=== PATIENT | male | born 1945 | race Caucasian/White ===

== ENCOUNTER 2017-01-10 16:30 | Emergency (ER) | payer MEDICARE, OTHER ==
[~2017-01-10] VITALS: Ht 185.4 cm; Wt 77.1 kg
[2017-01-10 16:40] VITALS: BP 136/60
--- NOTE | 2017-01-10 17:14 | PHYS DOC ---
General Chief Complaint: WEAKNESS/GENERALIZED Stated Complaint: weakness Time Seen by MD: 17:13 Source: patient Exam Limitations: no limitations Problems: (VICKIE SAMUEL DO) Time Seen by MD: 18:31 Problems: (KIKO SURESH MD) History of Present Illness Initial Comments Patient is a 71-year-old male brought to the ED by a friend with multiple complaints. Patient states that his is very ill with late stage Alzheimer's dementia, he's been burning the candle at both ends trying to take care of her. He states that for the past 2 weeks his mood is been very decreased he's had very low energy he's been nauseous with very little appetite. He says that for the past 10 days he's had to force himself to eat when he was able to get anything in. He says he has had a couple slices of pears every few days. He was drinking water and Sprite however sprite was causing emesis so he is in drinking small sips of water as he's been able. He denies abdominal pain chest pain or difficulty breathing or dyspnea on exertion headache or focal weakness. He has history of detached retina and is legally blind in his left eye with last checked 20-40 vision. Last right visual acuity was 20/50, he says his vision has worsened past week he saw his primary care doctor and is scheduled with Dr. Martinez ophthalmology this next week. Patient's friend brought him to the hospital main building where the old emergency Department used to be. As they were walking in, the patient being legally blind accidentally tripped on a curb and fell forward catching himself with his hands and landing on his knees. He denies any injury from the fall and refuses any evaluation denying any complaints. Timing/Duration: getting worse, other Severity: moderate Modifying Factors: worse with eating, worse with movement, improves with rest Associated Symptoms: loss of appetite, malaise, nausea/vomiting, weakness, other (VICKIE SAMUEL DO) Allergies: Coded Allergies: ibuprofen (Verified Allergy, Intermediate, Hives, 01/10/17) Past Medical History Medical History: other (detached retina) Surgical History: noncontributory (VICKIE SAMUEL DO) Social History Smoker: non-smoker Alcohol: none Drugs: none (VICKIE SAMUEL DO) Review of Systems Constitutional: denies chills, denies diaphoresis, denies fever, malaise, weakness EENTM: see HPI Respiratory: denies cough, denies shortness of breath, denies wheezing Cardiovascular: denies chest pain, denies edema, denies palpitations, denies syncope Gastrointestinal: see HPI, denies abdominal pain Genitourinary: denies dysuria, denies frequency, denies hematuria Musculoskeletal: denies back pain, denies joint swelling, denies neck pain Skin: denies lesions, denies lumps, denies rash Psychiatric/Neurological: denies headache, denies numbness, denies paresthesia , denies weakness (VICKIE SAMUEL DO) Physical Exam General Appearance: WD/WN, no apparent distress Ear, Nose, Throat: hearing grossly normal, normal ENT inspection, normal pharynx (dry mucous membranes) Neck: non-tender, supple Respiratory: normal breath sounds, no respiratory distress Cardiovascular: normal peripheral pulses, bradycardia Gastrointestinal: normal bowel sounds, non tender, soft, no organomegaly Back: no CVA tenderness, no vertebral tenderness Extremities: non-tender, normal inspection 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 Interpreted by me. 1835: Patient signed out to Dr. Suresh at 1800 shift change with numerous studies pending. See his documentation for results and patient disposition. (VICKIE SAMUEL DO) Orders, Labs, Meds ER M.D. attending note Dr. Kiko Suresh Care assumed by me from Dr. Quiñonez at 1000. Patient with nausea and mild malaise for 2 weeks with decreased by mouth intake. He states he's been depressed but is not suicidal. Since seen initially by Dr. Quiñonez and full workup pending. Patient stable On M.D. exam patient is well-appearing with a nonfocal neurologic exam benign abdomen. He has a depressed mood and flat affect but denies significant depression and states he is functional at home. Workup is unremarkable except labs with mild hyponatremia sodium 127. Chest x- ray interpreted by me chronic changes no acute disease. EKG normal sinus rhythm at 62 with a left axis deviation and left anterior hemiblock. No further workup or treatment indicated. Patient is well appearing on reevaluation prior to discharge. He agrees with outpatient follow-up and strict return precautions given Diagnosis Hyponatremia Depression (KIKO SURESH MD) VICKIE SAMUEL DO Jan 10, 2017 17:14 KIKO SURESH MD Jan 11, 2017 02:51
[2017-01-10 18:10] LABS: BASO % 0 % (0-3); EOS # 0.1 x10^3/uL (0.0-0.7); EOS % 2 % (0-3); HEMATOCRIT 42.7 % (39.0-53.0); HEMOGLOBIN 15.1 g/dL (13.0-17.5); LYMPH # 1.3 x10^3/uL (1.0-4.8); LYMPH % 22 % (24-48); MEAN CORPUSCULAR HEMOGLOBIN 32 pg (25-35); MEAN CORPUSCULAR HGB CONC 35 g/dL (31-37); MEAN CORPUSCULAR VOLUME 92 fL (79-100); MONO # 0.9 x10^3/uL (0.0-1.1); MONO % 16 % (0-9); NEUT # 3.5 x10^3uL (1.8-7.7); NEUT % 60 % (31-73); PLATELET COUNT 219 x10^3/uL (140-400); RED BLOOD COUNT 4.66 x10^6/uL (4.30-5.70); WHITE BLOOD COUNT 5.8 x10^3/uL (4.0-11.0)
[2017-01-10] MEDS ORDERED: IV NORMAL SALINE 1,000ML 1,000 ML IV SCH (18:10)
[2017-01-10 18:27] LABS: ALBUMIN 3.4 g/dL (3.4-5.0); ALBUMIN/GLOBULIN RATIO 0.9 (1.0-1.7); CALCIUM 8.5 mg/dL (8.5-10.1); GFR 73.5; POTASSIUM 3.6 mmol/L (3.5-5.1); TOTAL BILIRUBIN 0.7 mg/dL (0.2-1.0); TOTAL PROTEIN 7.2 g/dL (6.4-8.2)
--- NOTE | 2017-01-10 18:28 | EKG ---
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
[2017-01-10] MEDS ORDERED: ONDANSETRON PF 4 MG/2 ML VIAL. IV ONE (18:35)
[2017-01-10 20:27] LABS: BACTERIA,URINE 0 /HPF (0-FEW); BILIRUBIN,URINE NEG (NEG); CLARITY,URINE CLEAR; COLOR,URINE YELLOW; GLUCOSE,URINE NEG (NEG); NITRITE,URINE NEG (NEG); SQUAMOUS EPITHELIAL CELL,UR OCC /LPF; UROBILINOGEN,URINE 4 mg/dL (0.2 mg/dL); WBC,URINE OCC /HPF (0-4)
--- NOTE | 2017-01-11 08:47 | RAD ---
AP chest, 01/10/2017: History: Weakness, nausea The heart size and pulmonary vascularity are normal. No pulmonary infiltrates are seen. There is no evidence of pleural fluid. There are mild scattered spurs in the spine. IMPRESSION: No acute cardiopulmonary abnormality is detected.
== END 2017-01-10 20:20 | disposition home or self-care (01) ==
LOC: ER 16:30
DX: E87.1 Hypo-osmolality and hyponatremia (principal); F32.9 Major depressive disorder, single episode, unspecified; Z88.6 Allergy status to analgesic agent
CPT/HCPCS: 36415; 71010; 80053; 81001; 84484; 85027; 93005; 96361; 96374; 99285; J2405; J7030

== ENCOUNTER → 2017-01-16 | Outpatient (CLI) | payer MEDICARE, OTHER ==
[2017-01-10 16:40] VITALS: BP 136/60
[~2017-01-16] MED LIST: IOHEXOL 240 MG/ML 50ML VIAL. ONE; IOHEXOL 300 MG/ML 75 ML VIAL. IV ONE
--- NOTE | 2017-01-16 10:05 | RAD ---
Indication loss of appetite for 2 weeks. Vomiting. Stomach pain. Axial images of the abdomen and pelvis were obtained. Both oral and IV contrast were administered. Approximately 75 cc of Omnipaque 300 was administered intravenously. No prior CT imaging of the abdomen or pelvis is available. The lung bases are clear. The liver and spleen appear unremarkable and the gallbladder appears grossly normal. No pancreatic adrenal or renal anomalies are seen. There is no significant central or retroperitoneal adenopathy. In the pelvis no acute finding is seen. The prostate is moderately enlarged. The urinary bladder is distended. There are some degenerative changes in the lumbar spine predominantly centered at L5-S1 IMPRESSION: No acute finding seen in the abdomen or pelvis. Enlarged prostate. Distended urinary bladder PQRS Compliance Statement: One or more of the following individualized dose reduction techniques were utilized for this examination: 1. Automated exposure control 2. Adjustment of the mA and/or kV according to patient size 3. Use of iterative reconstruction technique
--- NOTE | 2017-01-16 11:55 | RAD ---
Carotid ultrasound, 01/16/2017: History: Right eye visual loss Duplex evaluation of the carotid arteries in neck was performed including grayscale, color-flow and spectral Doppler analysis. There is mild intimal thickening in the common carotid arteries with mild smooth plaquing at the carotid bifurcations. The plaques are partially calcified. The peak systolic velocity in the right internal carotid artery is 60 cm/s with an end-diastolic velocity of 22 cm/s. The peak systolic velocity in the left internal carotid artery is 59 cm/s with an end-diastolic velocity of 19 cm/s. No significant velocity acceleration is seen on either side to suggest high-grade stenosis. Antegrade flow is present in both vertebral arteries in the neck. IMPRESSION: Mild atherosclerotic plaquing at both carotid bifurcations with underlying luminal narrowing in the 0-50% diameter range bilaterally. Note: Stenosis calculations for CT, MRA and conventional angiography are based upon determination of the distal ICA diameter in accordance with the NASCET methodology. Stenosis calculations for Doppler studies are derived from validated velocity criteria which are known to correlate with NASCET methodology of determining stenosis.
== END | disposition home or self-care (01) ==
LOC: CT 08:02
PROVIDERS: ATTEND Physician Assistant Medical
DX: N40.0 Benign prostatic hyperplasia without lower urinary tract symptoms (principal); H54.61 Unqualified visual loss, right eye, normal vision left eye; I65.23 Occlusion and stenosis of bilateral carotid arteries; R11.10 Vomiting, unspecified
CPT/HCPCS: 74177; 93880; Q9966; Q9967

== ENCOUNTER → 2018-11-20 | Outpatient (CLI) | payer MEDICARE, OTHER ==
--- NOTE | 2018-11-20 16:46 | RAD ---
PA and lateral chest. HISTORY: Hypertension PA and lateral views were taken of the chest. Comparison is made with a study of January 2012. There is mild apical scarring. Lungs are clear. Heart is normal in size. There is no pleural effusion. IMPRESSION: 1. No acute chest disease. Electronically signed by: Bienvenido Hummel MD (11/20/2018 4:43 PM) [facility]
--- NOTE | 2018-11-20 16:54 | RAD ---
Lumbar spine 5 views. HISTORY: Low back pain AP, lateral, coned-down lateral and both oblique views were taken of the lumbar spine. Spine is in normal alignment. There is disc space narrowing at L5-S1. There is a mild compression fracture of T12 which is new compared to January 2017 but exact age is indeterminate. Oblique view show no spondylolysis. IMPRESSION: 1. Degenerative disc disease L5-S1. 2. Mild compression fracture T12. Electronically signed by: Bienvenido Hummel MD (11/20/2018 4:51 PM) [facility]
== END | disposition home or self-care (01) ==
LOC: PMG 15:54
PROVIDERS: ATTEND Physician Assistant Medical
DX: M48.54XA Collapsed vertebra, not elsewhere classified, thoracic region, initial encounter for fracture (principal); M51.37 Other intervertebral disc degeneration, lumbosacral region; M48.07 Spinal stenosis, lumbosacral region; J98.4 Other disorders of lung; I10 Essential (primary) hypertension
CPT/HCPCS: 71046; 72110

== ENCOUNTER → 2019-09-21 | Outpatient (CLI) | payer MEDICARE, OTHER ==
--- NOTE | 2019-09-21 15:19 | RAD ---
NECK SOFT TISSUE History: Left neck swelling Comparison: None. Findings: Multiple sonographic images directed toward the left neck are submitted. At the area of concern, there is an ovoid hypoechoic mass about 1.9 x 1.5 x 1.3 cm, another adjacent mass about 1.5 x 1.2 x 1 cm. If these are lymph nodes, there is loss of definition of the central fatty delicia. In the left neck labeled as below the jaw line, there is a 0.5 x 0.5 x 0.4 cm likely node with central fatty hilum. There are also several other smaller nodes of the left neck There are also some small lymph nodes of the visualized right neck. Impression: 1. At site of concern of left neck, there are 2 hypoechoic masses or abnormal lymph nodes. Short-term clinical follow-up after treatment to assess for improvement or further imaging such as with neck CT is recommended. Electronically signed by: Ti Spear MD (09/21/2019 3:16 PM) [id number]
--- NOTE | 2019-09-21 16:38 | RAD ---
EXAM: Abdomen sonogram. HISTORY: Elevated liver enzyme laboratory values. TECHNIQUE: Sonographic imaging of the abdomen was performed. COMPARISON: None. FINDINGS: The liver is normal in size. No focal hepatic lesion is seen. The gallbladder contains multiple nonmobile echogenic lesions along the gallbladder wall, the appearance of which favors tiny polyps or cholesterolosis. The largest of these measure 2 to 3 mm. The right kidney, pancreas and inferior vena cava are unremarkable. The common bile duct is normal in caliber. IMPRESSION: 1. Tiny nonmobile echogenic foci along the collar wall due to tiny polyps or cholesterolosis. 2. Otherwise, unremarkable abdomen sonogram. Electronically signed by: Rebekah Angulo MD (09/21/2019 4:35 PM) [id number]
== END | disposition home or self-care (01) ==
LOC: US 12:36
PROVIDERS: ATTEND Physician Assistant Medical
DX: R22.1 Localized swelling, mass and lump, neck (principal); R74.0 Nonspecific elevation of levels of transaminase and lactic acid dehydrogenase [LDH]
CPT/HCPCS: 76536; 76705

== ENCOUNTER 2020-12-16 07:01 | Emergency (ER) | payer MEDICARE, OTHER ==
[~2020-12-16] VITALS: Ht 188 cm; Wt 93.7 kg
--- NOTE | 2020-12-16 07:38 | PHYS DOC ---
Past History Past Medical History: Other Additional Past Medical Histor: HAY FEVER Past Surgical History: No Surgical History Additional Smoking Information: PT STATES HE SMOKES A PIPE Alcohol Use: None Additional Alcohol Information: 5 BEERS DAILY Drug Use: None General Adult EDM: Chief Complaint: LOWER EXTREMITY SWELLING HPI: HPI: 75-year-old male presents with right lower leg swelling. He has intermittent swelling of his lower legs bilaterally at baseline. It comes and goes and is typically mild. He has pitting edema and erythema of the right lower leg for the last couple of days and he decided he should get that evaluated. The patien t also has a rash on his left forearm its been there for months. He also has a prominent mass in the left side of his neck that he was supposed to get a biopsy of a year ago. He has not had that test yet. Review of Systems: Review of Systems: Constitutional: Denies fever or chills Eyes: Denies change in visual acuity HENT: Neck mass Respiratory: Denies cough or shortness of breath Cardiovascular: Denies chest pain or edema GI: Denies abdominal pain, nausea, vomiting, bloody stools or diarrhea : Denies dysuria Musculoskeletal: Denies back pain or joint pain Integument: Rash of the left forearm and right lower leg Neurologic: Denies headache, focal weakness or sensory changes Endocrine: Denies polyuria or polydipsia Lymphatic: Denies swollen glands Psychiatric: Denies depression or anxiety Allergies: Allergies: Allergies Coded Allergies Type Severity Reaction Last Updated Verified ibuprofen Allergy Intermediate Hives 01/10/17 Yes Physical Exam: PE: Constitutional: Well developed, well nourished, no acute distress, non-toxic appearance. [] HENT: Normocephalic, atraumatic, bilateral external ears normal, oropharynx moist, no oral exudates, nose normal. [] Eyes: PERRLA, EOMI, conjunctiva normal, no discharge. [] Neck: Normal range of motion, firm palpable 1.5 cm x 3 cm mass in the left anterior neck. [] Cardiovascular: Heart rate regular rhythm, no murmur [] Lungs & Thorax: Bilateral breath sounds clear to auscultation [] Abdomen: Bowel sounds normal, soft, no tenderness, no masses, no pulsatile masses. [] Skin: Warm erythematous rash of the right lower leg with 3+ pitting edema. Erythematous, nodular rash of the left forearm. [] Back: No tenderness, no CVA tenderness. [] Extremities: No tenderness, no cyanosis, no clubbing, ROM intact, no edema. [] Neurologic: Alert and oriented X 3, normal motor function, normal sensory function, no focal deficits noted. [] Psychologic: Affect normal, judgement normal, mood normal. [] Current Patient Data: Vital Signs: Vital Signs Date Time Temp Pulse Resp B/P (MAP) Pulse Ox O2 Delivery O2 Flow Rate FiO2 12/16/20 07:20 98.1 96 20 136/112 (120) 99 Room Air EKG: EKG: [] Radiology/Procedures: Radiology/Procedures: [] Heart Score: C/O Chest Pain: N/A Risk Factors: Risk Factors: DM, Current or recent (<one month) smoker, HTN, HLP, family history of CAD, obesity. Risk Scores: Score 0 - 3: 2.5% MACE over next 6 weeks - Discharge Home Score 4 - 6: 20.3% MACE over next 6 weeks - Admit for Clinical Observation Score 7 - 10: 72.7% MACE over next 6 weeks - Early Invasive Strategies Course & Med Decision Making: Course & Med Decision Making Pertinent Labs and Imaging studies reviewed. (See chart for details) The patient's labs are unremarkable. Patient appears to have cellulitis of the right lower leg. I will treat him with Keflex for 7 days. I am unsure what is going on with chronic rash in his left arm. I stressed to the patient that he needed to get the biopsy of his neck done as soon as possible. He will follow- up with his primary care physician. He is stable for discharge at this time. [] Dragon Disclaimer: Dragon Disclaimer: This electronic medical record was generated, in whole or in part, using a voice recognition dictation system. Departure Departure: Impression: Primary Impression: Cellulitis of right lower extremity Additional Impressions: Neck mass Rash Disposition: HOME / SELF CARE / HOMELESS Condition: STABLE Referrals: DINA LANGE (PCP) Patient Instructions: Cellulitis, [id number] Scripts Cephalexin (CEPHALEXIN) 500 Mg Tablet 1 TAB PO TID for cellulitis for 7 Days, #21 TAB Prov: IRMA QUINTANA DO 12/16/20 IRMA QUINTANA DO Dec 16, 2020 07:38
[2020-12-16 07:55] LABS: BASO # 0.1 x10^3/uL (0.0-0.2); BASO % 1 % (0-3); EOS # 0.9 x10^3/uL (0.0-0.7); EOS % 10 % (0-3); HEMATOCRIT 37.5 % (39.0-53.0); HEMOGLOBIN 12.5 g/dL (13.0-17.5); LYMPH # 2.4 x10^3/uL (1.0-4.8); LYMPH % 27 % (24-48); MEAN CORPUSCULAR HEMOGLOBIN 27 pg (25-35); MEAN CORPUSCULAR HGB CONC 33 g/dL (31-37); MEAN CORPUSCULAR VOLUME 80 fL (79-100); MONO # 1.2 x10^3/uL (0.0-1.1); MONO % 13 % (0-9); NEUT # 4.5 x10^3uL (1.8-7.7); NEUT % 50 % (31-73); PLATELET COUNT 270 x10^3/uL (140-400); RED BLOOD COUNT 4.69 x10^6/uL (4.30-5.70); RED CELL DISTRIBUTION WIDTH 16.4 % (11.5-14.5); WHITE BLOOD COUNT 9.1 x10^3/uL (4.0-11.0)
[2020-12-16 08:32] LABS: ALBUMIN 3.5 g/dL (3.4-5.0); ALBUMIN/GLOBULIN RATIO 0.9 (1.0-1.7); CALCIUM 8.5 mg/dL (8.5-10.1); GFR 72.6; TOTAL BILIRUBIN 0.5 mg/dL (0.2-1.0); TOTAL PROTEIN 7.3 g/dL (6.4-8.2)
[2020-12-16] MEDS ORDERED: CEPH500T PO (09:01)
== END 2020-12-16 09:12 | disposition home or self-care (01) ==
LOC: ER 07:01
DX: L03.115 Cellulitis of right lower limb (principal); R22.1 Localized swelling, mass and lump, neck; Z88.6 Allergy status to analgesic agent
CPT/HCPCS: 36415; 80053; 83880; 85025; 99283-25

== ENCOUNTER → 2021-01-04 | Outpatient (CLI) | payer MEDICARE, OTHER ==
[2020-12-16 07:20] VITALS: BP 136/112
[~2021-01-04] MED LIST changes: +CEPH500T PO; -IOHEXOL 240 MG/ML 50ML VIAL. ONE
--- NOTE | 2021-01-04 11:54 | RAD ---
PQRS Compliance Statement: One or more of the following individualized dose reduction techniques were utilized for this examinat ion: 1. Automated exposure control 2. Adjustment of the mA and/or kV according to patient size 3. Use of iterative reconstruction technique CT NECK SOFT TISSUE WITH IV CONTRAST 01/04/2021 10:17 AM Indication: Left-sided neck mass COMPARISON: Ultrasound neck 09/21/2019 TECHNIQUE: Multiple axial CT images of the neck were obtained after the intravenous administration of nonionic contrast. Coronal and sagittal reformats are provided. FINDINGS: Lung bases are clear. Heart size within normal limits. Visualized orbits are normal. Paranasal sinuse s are well aerated. Education Analyst spaces normal. Submandibular glands are normal. No significant abnorma lity involving the oral cavity, floor of mouth and sublingual space. Parapharyngeal fat is preserved. Along the superficial lobe of the left parotid gland inferiorly there is a hypoattenuating lesion me asuring 2.4 x 2.1 cm. Immediately inferior and partially contiguous with this area is a rounded nodul ar soft tissue mass measuring 2.3 x 2.2 cm. Left submandibular lymph node measures 8.5 mm. Vascular s paces are intact with exception of mild calcified plaque at the carotid bifurcations. There is no retropharyngeal lymphadenopathy. Nasopharynx is normal in appearance. Tonsilloliths are i dentified in the right. Oropharynx is otherwise normal. Epiglottis and aryepiglottic folds are intact . The vallecula and piriform spaces are normal. No laryngeal or tracheal mass. Laryngeal cartilage is intact. Lungs are clear. No suspicious osseous normality. Mild cervical spondylosis. Thyroid is norm al. IMPRESSION: 1. There is a mass involving the inferior superficial left parotid gland which may represent an intra parotid lymph node as may be seen with lymphoma versus benign or malignant parotid neoplasm. There is an adjacent either contiguous or separate soft tissue mass which could represent an enlarged lymph n ode immediately inferior to the left parotid gland. Tissue sampling is recommended for further evalua tion. 2. This finding appears similar when dating back to 09/21/2019, although difficult to compare given di fferences in modality. Given persistence, reactive lymphadenopathy is unlikely. Electronically signed by: Janny Jean MD (01/04/2021 11:52 AM) [id number]
== END ==
LOC: CT 09:40
PROVIDERS: ATTEND Surgery
DX: M47.812 Spondylosis without myelopathy or radiculopathy, cervical region (principal); I65.23 Occlusion and stenosis of bilateral carotid arteries; R22.1 Localized swelling, mass and lump, neck
CPT/HCPCS: 70491; Q9967

== ENCOUNTER 2021-02-19 03:27 | Emergency (ER) | payer MEDICARE, OTHER ==
[~2021-02-19] VITALS: Ht 188 cm; Wt 94.0 kg
[~2021-02-19 03:27] MED LIST changes: -IOHEXOL 300 MG/ML 75 ML VIAL. IV ONE
[2021-02-19] MEDS ORDERED: ASPIRIN CHEWABLE 81 MG TABLET. PO ONE (03:45)
[2021-02-19 04:27] LABS: BASO # 0.1 x10^3/uL (0.0-0.2); BASO % 1 % (0-3); EOS # 0.9 x10^3/uL (0.0-0.7); EOS % 12 % (0-3); HEMATOCRIT 22.6 % (39.0-53.0); HEMOGLOBIN 7.1 g/dL (13.0-17.5); LYMPH % 27 % (24-48); MEAN CORPUSCULAR HEMOGLOBIN 22 pg (25-35); MEAN CORPUSCULAR HGB CONC 31 g/dL (31-37); MEAN CORPUSCULAR VOLUME 69 fL (79-100); MONO # 0.9 x10^3/uL (0.0-1.1); MONO % 13 % (0-9); NEUT # 3.4 x10^3uL (1.8-7.7); NEUT % 47 % (31-73); PLATELET COUNT 332 x10^3/uL (140-400); RED BLOOD COUNT 3.26 x10^6/uL (4.30-5.70); RED CELL DISTRIBUTION WIDTH 21.3 % (11.5-14.5); WHITE BLOOD COUNT 7.2 x10^3/uL (4.0-11.0)
[2021-02-19 04:41] LABS: CALCIUM 7.7 mg/dL (8.5-10.1); CREATININE 0.9 mg/dL (0.7-1.3); POTASSIUM 3.8 mmol/L (3.5-5.1)
[2021-02-19 04:51] LABS: HYPOCHROMIA MOD; PLT ESTIMATE ADEQUATE (ADEQUATE)
[2021-02-19 04:52] LABS: ANISOCYTOSIS MOD; MICROCYTOSIS MOD
[2021-02-19 04:53] LABS: ALBUMIN 3.2 g/dL (3.4-5.0); DIRECT BILIRUBIN 0.1 mg/dL (0.0-0.2); TOTAL BILIRUBIN 0.3 mg/dL (0.2-1.0); TOTAL PROTEIN 6.2 g/dL (6.4-8.2)
--- NOTE | 2021-02-19 05:02 | EKG ---
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
[2021-02-19] MEDS ORDERED: IOHEXOL 350 MG/ML 100 ML VIAL. IV ONE (05:30)
[2021-02-19] MEDS ORDERED: CONTRAST GIVEN. MC PRN (05:30)
[2021-02-19] MEDS ORDERED: APIXABAN 5 MG TABLET. PO ONE (05:30)
--- NOTE | 2021-02-19 06:02 | RAD ---
Study: XR CHEST 1V Indication: Chest pain. Comparison: 11/20/2018 Findings: The cardiomediastinal silhouette and delicia are within normal limits. Flattened diaphragm. No confluent airspace infiltrate, pleural effusion or pneumothorax. Impression: No acute radiographic abnormality of the chest. Possible underlying emphysema. Correlate for a smokin g history. Electronically signed by: ANA LUISA ARENAS MD (02/19/2021 5:59 AM) [facility]
[2021-02-19] MEDS: IV RINGERS SOLUTION,LACTATED 1,000 ML IV SCH ×2 (06:04→06:11)
--- NOTE | 2021-02-19 06:14 | EKG ---
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
[2021-02-19] MEDS ORDERED: PANTOPRAZOLE IV 40 MG VIAL. IVP ONE (06:15)
--- NOTE | 2021-02-19 06:22 | RAD ---
Study: CT CHEST WITH CONTRAST - PULMONARY ANGIOGRAM History: Pleuritic chest pain. Comparison: None. Technique: Helical CT of the chest performed after the administration of 100 cc Omnipaque 350 intrav enous contrast and timed for angiographic evaluation of the pulmonary arteries per PE protocol. Coron al and sagittal 3D MIP reformations were obtained. One or more of the following individualized dose reduction techniques were utilized for this examinat ion: 1. Automated exposure control 2. Adjustment of the mA and/or kV according to patient size 3. Use of iterative reconstruction technique. Findings: Pulmonary Arteries: No main, lobar or segmental pulmonary embolism. Normal main pulmonary artery santiago nazanin. Heart/Systemic Vasculature: No aortic aneurysm or dissection. Multifocal calcific atherosclerosis wit h extensive coronary artery involvement. Mediastinum: No pathologically enlarged lymph nodes, pericardial effusion or hiatal hernia. Lungs: Tiny subpleural nodule at the left upper lobe on image 41 series 4. Tiny fissural nodule at th e anterior left lower lobe on image 85 series 4. No localized airspace infiltrate. Mild emphysema, bi apical scarring and basilar volume loss. Mild bronchial wall thickening best seen within the right lo wer lobe. No pleural effusion. Neck/Axilla/Body Wall: Unremarkable thyroid and axilla. Minimal gynecomastia. Upper Abdomen: Several mildly prominent upper abdominal lymph nodes have not significant changed in s ize from a CT abdomen/pelvis performed in 2017. There appears to be a small gallstone or small adjace nt stones approaching the gallbladder neck on image [address] evidence for acute cholecysti tis. Calcification within the pancreas uncinate process. Bones: T12 superior endplate height loss is chronic. T2, T7 and T9 body hemangiomas vertebral body he mangiomas. Also chronic is mild superior endplate height loss at T4. Miscellaneous: None. IMPRESSION: 1. No main, lobar or segmental pulmonary embolism. 2. Mild emphysema. If the patient meets screening guidelines annual low dose CT of the chest is andrew mmended. 3. No localized airspace infiltrate to suggest pneumonia. 4. Additional chronic observations described in the body of the report to include extensive calcific coronary artery disease. Electronically signed by: ANA LUISA ARENAS MD (02/19/2021 6:20 AM) [facility]
[2021-02-19] MEDS ORDERED: diphenhydrAMINE 50 MG/ML VIAL IVP ONE (06:30)
--- NOTE | 2021-02-19 06:45 | PHYS DOC ---
Past History Past Medical History: Anemia, Arthritis, Asthma Additional Past Medical Histor: HAY FEVER (RAFAEL HERNANDEZ MD) Past Surgical History: No Surgical History (RAFAEL HERNANDEZ MD) Alcohol Use: Heavy Drug Use: None (RAFAEL HERNANDEZ MD) General Adult EDM: Chief Complaint: CHEST PAIN HPI: HPI: ".. I got chest pain.. and some shortness of breath.. this has been going on for awhile... maybe two weeks now.. It get tired easy.." " ".. About the same time..I got my COVID shot..and .. I got this mass here on side of my jaw....its been there a year or so. .".. ".. I ve been seeing Dr. Payne.. for it.. " I see Nava for everything else.. Patient is a 75 year old male who presents with above complaints central chest pain, fatigue and shortness of breath. Patient states these symptoms have been present for the past couple weeks.. Patient denies any recent travel. No specific ill contacts. No change in change in meds. Patient does have past history of asthma, arthritis, left mandible mass which he sees Dr. Payne. Aruna ent does smoke a pipe. Patient also has a history of chronic lower leg edema and a history of cellulitis in the lower legs. Seen in the ER on 12/16/2020 for cellulitis. Patient, states chest pain tonight seemed to be more persistent. Patient states last 2 weeks overall fatigue has increased. Patient recently completed Covid vaccination with Moderna last week. (RAFAEL HERNANDEZ MD) Review of Systems: Review of Systems: Constitutional: Denies fever or chills Eyes: Denies change in visual acuity HENT: Denies nasal congestion or sore throat Respiratory: Denies cough or shortness of breath Cardiovascular: Complains of of central chest pain. Does have history of lower leg edema GI: Denies abdominal pain, nausea, vomiting, bloody stools or diarrhea : Denies dysuria Musculoskeletal: Complains of generalized weakness Integument: Denies rash Neurologic: Denies headache, focal weakness or sensory changes Endocrine: Denies polyuria or polydipsia Lymphatic: Denies swollen glands Psychiatric: Denies depression or anxiety (RAFAEL HERNANDEZ MD) Family History: Family History: Noncontributory to presentation (RAFAEL HERNANDEZ MD) Current Medications: Current Meds: Current Medications Medications (Trade) Dose Ordered Sig/Soledad Start Time Stop Time Status Last Admin Dose Admin Apixaban (Eliquis) 10 mg 1X ONCE 02/19/21 05:30 02/19/21 06:27 DC Aspirin (Aspirin Chewable) 324 mg 1X ONCE 02/19/21 03:45 02/19/21 06:27 DC Diphenhydramine HCl (Benadryl) 25 mg 1X ONCE 02/19/21 06:30 02/19/21 06:31 DC 02/19/21 06:36 25 MG Info (Do NOT chart on this entry -- for MONITORING) 1 each PRN DAILY PRN 02/19/21 05:30 02/21/21 05:29 Iohexol (Omnipaque 350 Mg/ml) 100 ml 1X ONCE 02/19/21 05:30 02/19/21 05:31 DC 02/19/21 05:40 100 ML Lactated Ringer's 1,000 ml @ 100 mls/hr Q10H 02/19/21 03:45 02/19/21 13:44 02/19/21 06:11 100 MLS/HR Pantoprazole Sodium (Protonix Vial) 80 mg 1X ONCE 02/19/21 06:15 02/19/21 06:18 DC 02/19/21 06:36 80 MG (RAFAEL HERNANDEZ MD) Allergies: Allergies: Allergies Coded Allergies Type Severity Reaction Last Updated Verified ibuprofen Allergy Intermediate Hives 01/10/17 Yes (RAFAEL HERNANDEZ MD) Physical Exam: PE: Constitutional: Moderate acute distress, non-toxic appearance. [] HENT: Normocephalic, atraumatic, bilateral external ears normal, oropharynx moist, no oral exudates, nose normal. Left mandibular and neck mass. Eyes: PERRLA, EOMI, conjunctiva pale, no discharge. [] Neck: Normal range of motion, no tenderness, supple, no stridor. [] Cardiovascular:Heart rate regular rhythm, no murmur, PMI to the left Lungs & Thorax: Bilateral breath sounds equal apex with scattered wheezes on auscultation [] Abdomen: Bowel sounds normal, soft, no tenderness, no masses, no pulsatile masses. [] Skin: Warm, dry, no erythema, no rash. Pale Back: No tenderness, no CVA tenderness. [] Extremities: No tenderness, no cyanosis, no clubbing, ROM intact, lower leg edema. More erythema/venous stasis on right Neurologic: Alert and oriented X 3, moves all extremities on request, does have distal sensory,, no focal deficits noted. [] Psychologic: Affect anxious, judgement normal, mood normal. [] (RAFAEL HERNANDEZ MD) PE: Constitutional: Well developed, well nourished, no acute distress, non-toxic appearance HENT: Normocephalic, atraumatic Eyes: Conjunctiva normal, no discharge Neck: Normal range of motion, supple Lungs & Thorax: No respiratory distress, equal chest rise and fall Abdomen: Soft, no tenderness, no guarding/rebound tenderness/distention Skin: Warm, dry, no erythema, no rash Extremities: No tenderness, ROM intact, 2-3+ BLE (R>L) edema Neurologic: Alert and oriented X 3, no focal deficits noted Psychologic: Affect normal, judgment normal (KIKO HENDRICKSON DO) Current Patient Data: Labs: Laboratory Tests Test 02/19/21 04:05 White Blood Count 7.2 x10^3/uL (4.0-11.0) Red Blood Count 3.26 x10^6/uL (4.30-5.70) L Hemoglobin 7.1 g/dL (13.0-17.5) L Hematocrit 22.6 % (39.0-53.0) L Mean Corpuscular Volume 69 fL (79-100) L Mean Corpuscular Hemoglobin 22 pg (25-35) L Mean Corpuscular Hemoglobin Concent 31 g/dL (31-37) Red Cell Distribution Width 21.3 % (11.5-14.5) H Platelet Count 332 x10^3/uL (140-400) Neutrophils (%) (Auto) 47 % (31-73) Lymphocytes (%) (Auto) 27 % (24-48) Monocytes (%) (Auto) 13 % (0-9) H Eosinophils (%) (Auto) 12 % (0-3) H Basophils (%) (Auto) 1 % (0-3) Neutrophils # (Auto) 3.4 x10^3uL (1.8-7.7) Lymphocytes # (Auto) 2.0 x10^3/uL (1.0-4.8) Monocytes # (Auto) 0.9 x10^3/uL (0.0-1.1) Eosinophils # (Auto) 0.9 x10^3/uL (0.0-0.7) H Basophils # (Auto) 0.1 x10^3/uL (0.0-0.2) Platelet Estimate Adequate (ADEQUATE) Hypochromasia Mod Anisocytosis Mod Microcytosis Mod Prothrombin Time 9.9 SEC (9.4-11.4) Prothrombin Time INR 1.0 (0.9-1.1) Activated Partial Thromboplast Time 23 SEC (23-33) D-Dimer (Kandi) 1.36 mg/L (0.00-0.50) H Sodium Level 138 mmol/L (136-145) Potassium Level 3.8 mmol/L (3.5-5.1) Chloride Level 104 mmol/L (98-107) Carbon Dioxide Level 24 mmol/L (21-32) Anion Gap 10 (6-14) Blood Urea Nitrogen 8 mg/dL (8-26) Creatinine 0.9 mg/dL (0.7-1.3) Estimated GFR (Cockcroft-Gault) 82.0 Glucose Level 103 mg/dL (70-99) H Calcium Level 7.7 mg/dL (8.5-10.1) L Magnesium Level 2.0 mg/dL (1.8-2.4) Total Bilirubin 0.3 mg/dL (0.2-1.0) Direct Bilirubin 0.1 mg/dL (0.0-0.2) Aspartate Amino Transferase (AST) 37 U/L (15-37) Alanine Aminotransferase (ALT) 22 U/L (16-63) Alkaline Phosphatase 79 U/L (46-116) Creatine Kinase 45 U/L (39-308) Troponin I Quantitative < 0.017 ng/mL (0-0.055) OF-Zea-X-Type Natriuretic Peptide 223 pg/mL (0-449) Total Protein 6.2 g/dL (6.4-8.2) L Albumin 3.2 g/dL (3.4-5.0) L Lipase 147 U/L (73-393) Vital Signs: Vital Signs Date Time Temp Pulse Resp B/P (MAP) Pulse Ox O2 Delivery O2 Flow Rate FiO2 02/19/21 03:58 98.0 92 18 143/78 Room Air (RAFAEL HERNANDEZ MD) EKG: EKG: My interpretation EKG shows sinus rhythm with left axis deviation. Fascicular block. Some anterior septal changes. Prolonged QT interval. Time of this EKG was 0 333 My interpretation second EKG shows a sinus rhythm at 82 bpm. There is left axis deviation. There is some anterior septal changes. Abnormal EKG. Time of this EKG is 0559 hrs. [] (RAFAEL HERNANDEZ MD) Radiology/Procedures: Radiology/Procedures: [[address] [address] IMAGING REPORT Signed PATIENT: DINO LEON ACCOUNT: [id number] : 1945 LOCATION: ER AGE: 75 SEX: M EXAM STATUS: REG ER ORD. PHYSICIAN: RAFAEL HERNANDEZ MD REASON: cp PROCEDURE: PORTABLE CHEST 1V Study: XR CHEST 1V Indication: Chest pain. Comparison: 11/20/2018 Findings: The cardiomediastinal silhouette and delicia are within normal limits. Flattened diaphragm. No confluent airspace infiltrate, pleural effusion or pneumothorax. Impression: No acute radiographic abnormality of the chest. Possible underlying emphysema. Correlate for a smoking history. Electronically signed by: ANA LUISA ARENAS MD (02/19/2021 5:59 AM) [facility] DICTATED AND SIGNED BY: ANA LUISA ARENAS MD DATE: 02/19/21 0558 CC: RAFAEL HERNANDEZ MD; DINA LANGE ~[facility] 0 ][address] [address] IMAGING REPORT Signed PATIENT: DINO LEON ACCOUNT: [id number] : 1945 LOCATION: ER AGE: 75 SEX: M EXAM STATUS: REG ER ORD. PHYSICIAN: RAFAEL HERNANDEZ MD REASON: pleurectic chest pain, OMNI 350, 100ml PROCEDURE: CT ANGIOGRAPHY CHEST Study: CT CHEST WITH CONTRAST - PULMONARY ANGIOGRAM History: Pleuritic chest pain. Comparison: None. Technique: Helical CT of the chest performed after the administration of 100 cc Omnipaque 350 intravenous contrast and timed for angiographic evaluation of the pulmonary arteries per PE protocol. Coronal and sagittal 3D MIP reformations were obtained. One or more of the following individualized dose reduction techniques were utilized for this examination: 1. Automated exposure control 2. Adjustment of the mA and/or kV according to patient size 3. Use of iterative reconstruction technique. Findings: Pulmonary Arteries: No main, lobar or segmental pulmonary embolism. Normal main pulmonary artery caliber. Heart/Systemic Vasculature: No aortic aneurysm or dissection. Multifocal calcific atherosclerosis with extensive coronary artery involvement. Mediastinum: No pathologically enlarged lymph nodes, pericardial effusion or hiatal hernia. Lungs: Tiny subpleural nodule at the left upper lobe on image 41 series 4. Tiny fissural nodule at the anterior left lower lobe on image 85 series 4. No localized airspace infiltrate. Mild emphysema, biapical scarring and basilar volume loss. Mild bronchial wall thickening best seen within the right lower lobe. No pleural effusion. Neck/Axilla/Body Wall: Unremarkable thyroid and axilla. Minimal gynecomastia. Upper Abdomen: Several mildly prominent upper abdominal lymph nodes have not significant changed in size from a CT abdomen/pelvis performed in 2017. There appears to be a small gallstone or small adjacent stones approaching the gallbladder neck on image [address] evidence for acute cholecystitis. Calcification within the pancreas uncinate process. Bones: T12 superior endplate height loss is chronic. T2, T7 and T9 body hemangiomas vertebral body hemangiomas. Also chronic is mild superior endplate height loss at T4. Miscellaneous: None. IMPRESSION: 1. No main, lobar or segmental pulmonary embolism. 2. Mild emphysema. If the patient meets screening guidelines annual low dose CT of the chest is recommended. 3. No localized airspace infiltrate to suggest pneumonia. 4. Additional chronic observations described in the body of the report to include extensive calcific coronary artery disease. Electronically signed by: ANA LUISA ARENAS MD (02/19/2021 6:20 AM) [facility] DICTATED AND SIGNED BY: ANA LUISA ARENAS MD DATE: 02/19/21 0610 CC: RAFAEL HERNANDEZ MD; DINA LANGE; KIKO HENDRICKSON DO ~MTH0 0 (RAFAEL HERNANDEZ MD) Heart Score: C/O Chest Pain: Yes HEART Score for Chest Pain: HEART Score for Chest Pain Response (Comments) Value History Moderately Suspicious 1 ECG Nonspecific Repolarizatio 1 Age > 65 2 Risk Factors 1 or 2 Risk Factors 1 Troponin < Normal Limit 0 Total 5 Risk Factors: Risk Factors: DM, Current or recent (<one month) smoker, HTN, HLP, family history of CAD, obesity. Risk Scores: Score 0 - 3: 2.5% MACE over next 6 weeks - Discharge Home Score 4 - 6: 20.3% MACE over next 6 weeks - Admit for Clinical Observation Score 7 - 10: 72.7% MACE over next 6 weeks - Early Invasive Strategies (RAFAEL HERNANDEZ MD) Course & Med Decision Making: Course & Med Decision Making Pertinent Labs and Imaging studies reviewed. (See chart for details) Patient found to have a hemoglobin of 7.1., Microcytic 69 and hypochromic 22 indices. Pt. reports some tar or dark stools. Patient endorsed to Dr. Hendrickson at shift change. He will make disposition of pt. Impression: 1. Chest pain 2. Asthma/emphysema 3. Microcytic hyperchromic anemia 4. Elevated D-dimer- 1.36 5. Neck Mass- Present more than 1 yr. 6. GI -Bled [] (RAFAEL HERNANDEZ MD) Course & Med Decision Making 0600- Sign out received from Dr. Hernandez for patient with report of chest pain, SOA, and weakness. EKGs x 2 stable. Labs reviewed. Significant drop in hemoglobin noted. Per [employer] review patient was at 12.5 on 12/16/20 and now has dropped to 7.1. Patient does reports some "dark tarry stools". Initial troponin WNL. D-dimer elevated. CTA chest pending at time of sign out. HEART score 5. Protonix bolus and gtt initiated. ASA and eliquis ordered by Dr. Hernandez discontinued. CTA chest without acute process. COVID swab had been ordered by Dr. Hernandez. Doubt COVID as CT without signs of ground glass opacities and hx that patient has received COVID vaccination with Moderna. Patient requiring admission for further evaluation and treatment. Discussed case with Dr. Tran (hospitalist) regarding who is in agreement that given significant recent drop in hemoglobin that patient requires transfer to facility with GI coverage. Discussed transfer to [facility] with Dr. Mosquera (hospitalist) who is in agreement with transfer for admission. Discussed findings and plan with patient, who acknowledges understanding and agreement. (KIKO HENDRICKSON DO) Dragon Disclaimer: Dragon Disclaimer: This electronic medical record was generated, in whole or in part, using a voice recognition dictation system. (RAFAEL HERNANDEZ MD) Departure Departure: Impression: Primary Impression: GI bleed Qualified Codes: K92.2 - Gastrointestinal hemorrhage, unspecified Additional Impressions: Chest pain Qualified Codes: R07.9 - Chest pain, unspecified Elevated d-dimer Anemia Qualified Codes: D64.9 - Anemia, unspecified Disposition: 02 [facility] ([facility]- Dr. Mosquera accepting) Condition: GUARDED Referrals: DINA LANGE (PCP) Dragon Disclaimer This chart was dictated in whole or in part using Voice Recognition software in a busy, high-work load, and often noisy Emergency Department environment. It may contain unintended and wholly unrecognized errors or omissions. (RAFAEL HERNANDEZ MD) Dragon Disclaimer This chart was dictated in whole or in part using Voice Recognition software in a busy, high-work load, and often noisy Emergency Department environment. It may contain unintended and wholly unrecognized errors or omissions. (RAFAEL HERNANDEZ MD) RAFAEL HERNANDEZ MD Feb 19, 2021 06:45 KIKO HENDRICKSON DO Feb 19, 2021 07:59
[2021-02-19] MEDS ORDERED: PANTOPRAZOLE IV 80 MG in IV NORMAL SALINE 100ML 100 ML IV ONE (07:00)
[2021-02-19] MEDS ORDERED: IV NORMAL SALINE 100ML 100 ML ONE (09:03)
[2021-02-19] MEDS ORDERED: PANTOPRAZOLE IV 40 MG VIAL. ONE (09:03)
[2021-02-19 11:29] VITALS: BP 157/82
[2021-02-20 11:25] LABS: THYROID STIM HORMONE (TSH) 2.804 uIU/mL (0.358-3.740)
== END 2021-02-19 11:30 | disposition left against medical advice (07) ==
LOC: ER 03:27
DX: K92.2 Gastrointestinal hemorrhage, unspecified (principal); D50.9 Iron deficiency anemia, unspecified; R07.89 Other chest pain; R79.1 Abnormal coagulation profile; R22.1 Localized swelling, mass and lump, neck; M19.90 Unspecified osteoarthritis, unspecified site; J45.909 Unspecified asthma, uncomplicated; F10.20 Alcohol dependence, uncomplicated; Z20.822 Contact with and (suspected) exposure to COVID-19; Z88.6 Allergy status to analgesic agent; Y90.9 Presence of alcohol in blood, level not specified
CPT/HCPCS: 36415; 71045; 71275; 80048; 80061; 80076; 82550; 83690; 83735; 83880; 84443; 84484; 85025; 85379; 85610; 85730; 86850; 86900; 86901; 93005; 96361; 96365; 96366; 96375; 96376; 99285; C9113; C9803; J1200; J7120; Q9967; U0003

== ENCOUNTER 2021-03-12 06:58 | Emergency (ER) | payer MEDICARE, OTHER ==
[~2021-03-12] VITALS: Ht 185.4 cm; Wt 89.1 kg
--- NOTE | 2021-03-12 07:36 | PHYS DOC ---
Past History Past Medical History: Anemia, Arthritis, Asthma Additional Past Medical Histor: HAY FEVER Past Surgical History: No Surgical History Alcohol Use: Heavy Drug Use: None Adult General HPI HPI Patient is a 75-year-old male presenting for chest pain. Reports this is a chronic condition. 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 Has no prior cardiac history. Reports substernal chest pain that does not radiate and is dull in nature. Reports it is not bad he just reports at times it is hard to breathe. States he has a history of anemia, reports " it gets like this sometimes, I can feel my blood getting low and I get this pain". Source of blood is in stool, he has had colonoscopies in the past none of which are concerning for any cancerous findings. Reports he has had black tarry stools for approximately 2 months and scheduled for outpatient follow-up with GI this upcoming March 30. He reports no significant changes in stool, no bright red blood or pain. He has never received a blood transfusion for this in the past Review of Systems Review of Systems Fourteen body systems of review of systems have been reviewed. See HPI for pertinent positives and negative responses, other bañuelos all other systems are negative, non-pertinent or non-contributory Allergies Allergies Allergies Coded Allergies Type Severity Reaction Last Updated Verified ibuprofen Allergy Intermediate Hives 01/10/17 Yes Physical Exam Physical Exam Constitutional: Age-appropriate, ambulatory back to ER room, no acute distress HENT: Normocephalic, atraumatic, bilateral external ears normal, oropharynx moist, no oral exudates, nose normal. Eyes: PERRLA, EOMI, conjunctiva normal, no discharge. Neck: Normal range of motion, no tenderness, supple, no stridor. Cardiovascular: Heart rate regular, sinus rhythm, no murmurs rubs or gallops Lungs & Thorax: Bilateral breath sounds clear to auscultation Abdomen: Bowel sounds normal, soft, no tenderness, no masses, no pulsatile masses. Nonsurgical abdomen, no peritoneal signs Skin: Warm, dry, no erythema, no rash. Patient has numerous self-induced excoriations to bilateral forearms Back: No tenderness, no CVA tenderness. Extremities: No tenderness, no cyanosis, no clubbing, ROM intact, no edema. Neurologic: Alert and oriented X 3, grossly normal motor & sensory function, no focal deficits noted. Psychologic: Odd affect, normal mood Current Patient Data Vital Signs Vital Signs Date Time Temp Pulse Resp B/P (MAP) Pulse Ox O2 Delivery O2 Flow Rate FiO2 03/12/21 07:30 98.3 79 20 132/66 100 Room Air Vital Signs Date Time Temp Pulse Resp B/P (MAP) Pulse Ox O2 Delivery O2 Flow Rate FiO2 03/12/21 08:04 77 18 124/69 (87) 98 Room Air 03/12/21 07:30 98.3 Lab Results Laboratory Tests Test 03/12/21 14:53 White Blood Count 5.9 x10^3/uL Red Blood Count 3.80 x10^6/uL Hemoglobin 8.1 g/dL Hematocrit 26.2 % Mean Corpuscular Volume 69 fL Mean Corpuscular Hemoglobin 21 pg Mean Corpuscular Hemoglobin Concent 31 g/dL Red Cell Distribution Width 23.5 % Platelet Count 394 x10^3/uL Current Medications Medications (Trade) Dose Ordered Sig/Soledad Route PRN Reason Start Time Stop Time Status Last Admin Dose Admin Aspirin (Aspirin Chewable) 324 mg 1X ONCE PO 03/12/21 08:00 03/12/21 08:08 DC 03/12/21 08:23 Acetaminophen (Tylenol) 650 mg PRN 1X PRN PO PRIOR TO TRANSFUSION 03/12/21 09:15 03/12/21 15:43 DC Diphenhydramine HCl (Benadryl Oral Elixir) 12.5 mg PRN 1X PRN PO PRIOR TO TRANSFUSION 03/12/21 09:15 03/12/21 15:43 DC EKG EKG EKG ordered and interpreted by myself 0735 hrs. as sinus rhythm at 80 bpm, pro longed QRS at 120 and QTC at 514 otherwise unremarkable intervals, left axis deviation, no obvious ischemic findings, no STEMI Repeat EKG ordered and interpreted by myself at 1459 hrs. as sinus rhythm at 86 bpm, prolonged QRS at 124 and prolonged QTC at 499 otherwise unremarkable intervals, left axis deviation, T wave abnormality in lead aVL otherwise no ischemic findings, no STEMI Radiology/Procedures Radiology/Procedures Exam Date: 03/12/2021 7:55 AM XR CHEST 1V Indication: Reason: chest pain / Spl. Instructions: / History: . Comparison: February 19, 2021 FINDINGS/ IMPRESSION: The aorta is calcified. The cardiac silhouette and pulmonary vasculature are within normal limits. There is no focal consolidation, pleural effusion or pneumothorax. The visualized osseous structures are intact. Electronically signed by: Adeel Fernandez MD (03/12/2021 8:08 AM) [facility] Heart Score C/O Chest Pain: Yes HEART Score for Chest Pain: HEART Score for Chest Pain Response (Comments) Value History Slighlty/Non-Suspicious 0 ECG Nonspecific Repolarizatio 1 Age > 65 2 Risk Factors 1 or 2 Risk Factors 1 Troponin < Normal Limit 0 Total 4 Risk Factors: Risk Factors: DM, Current or recent (<one month) smoker, HTN, HLP, family history of CAD, obesity. Risk Scores: Risk Factors: DM, Current or recent (<one month) smoker, HTN, HLP, family history of CAD, obesity. Course & Med Decision Making Course & Med Decision Making ABCs unremarkable. HPI, physical exam and comprehensive ER work-up nonconcerning for any emergent or surgical issues but patient is anemic and sym ptomatic I discussed need for blood transfusion and recommended fecal occult blood be performed but patient deferred stating he would rather just get the blood and follow-up in outpatient setting with the GI physicians I disclosed with patient that typically I would like to admit him for such a diagnosis but given current COVID-19 pandemic and lack of hospital beds/capacity issues, joint decision made to transfuse blood while in ER with repeat hemoglobin that was satisfactory and close outpatient follow-up Patient tolerated blood transfusion with improvement in hemoglobin on recheck. Patient reports feeling much better symptomatically. He has good access to outpatient care and already has outpatient GI follow-up for scope which I feel is appropriate. I updated patient on strict return precautions and he verbalized understanding, all questions and concerns addressed prior to ER departure Critical Care Time This patient required critical care. Due to the fact that the patient required a significant amount of one on one physician - patient contact time, ordering and review of studies, arranging urgent treatment with development of a management plan, evaluation of patients response to treatment with frequent reassessments, and discussions with other providers this patient required 35 minutes of critical care time. Critical care time was indicated due to the inherent instability and/or potential for instability in this patient. The critical care time that is allocated to this patient is above and beyond any time spent on any other billable procedures performed on this patient. Jose Raulon Disclaimer Dragon Disclaimer This electronic medical record was generated, in whole or in part, using a voice recognition dictation system. Departure Departure: Impression: Primary Impression: Anemia Disposition: HOME / SELF CARE / HOMELESS Condition: IMPROVED Referrals: DINA LANGE (PCP) Patient Instructions: Anemia, FAQs Additional Instructions: As discussed prior to ER departure, you came in with a low blood level, a hemoglobin of 6.2. This was likely causing all of your presenting symptoms. Joint decision made to administer 1 unit of packed red blood cells which he tolerated well and improved your hemoglobin to 8.1. As discussed, there is limited indication for further diagnostic work-up or intervention in ER setting at present. You already have open you should follow-up with GI physician March 30 which I advised you keep. If any concerning signs or symptoms present prior to outpatient follow-up please do not hesitate to come back for repeat evaluation. It was a pleasure to take care of you and I wish you the best going forward ROLAN SWEENEY DO Mar 12, 2021 07:35
--- NOTE | 2021-03-12 08:10 | RAD ---
Exam Date: 03/12/2021 7:55 AM XR CHEST 1V Indication: Reason: chest pain / Spl. Instructions: / History: . Comparison: February 19, 2021 FINDINGS/ IMPRESSION: The aorta is calcified. The cardiac silhouette and pulmonary vasculature are within normal limits. There is no focal consolidation, pleural effusion or pneumothorax. The visualized osseous structures are intact. Electronically signed by: Adeel Fernandez MD (03/12/2021 8:08 AM) [facility]
[2021-03-12] MEDS: ASPIRIN CHEWABLE 81 MG TABLET. PO ONE (08:23)
[2021-03-12 08:34] LABS: BASO # 0.1 x10^3/uL (0.0-0.2); BASO % 1 % (0-3); EOS # 0.8 x10^3/uL (0.0-0.7); EOS % 14 % (0-3); LYMPH # 1.7 x10^3/uL (1.0-4.8); LYMPH % 28 % (24-48); MEAN CORPUSCULAR HEMOGLOBIN 21 pg (25-35); MEAN CORPUSCULAR HGB CONC 31 g/dL (31-37); MEAN CORPUSCULAR VOLUME 66 fL (79-100); MONO % 17 % (0-9); NEUT # 2.4 x10^3uL (1.8-7.7); NEUT % 40 % (31-73); PLATELET COUNT 356 x10^3/uL (140-400); RED BLOOD COUNT 2.99 x10^6/uL (4.30-5.70); RED CELL DISTRIBUTION WIDTH 20.7 % (11.5-14.5); WHITE BLOOD COUNT 5.9 x10^3/uL (4.0-11.0)
[2021-03-12 08:36] LABS: CALCIUM 7.3 mg/dL (8.5-10.1); CREATININE 0.9 mg/dL (0.7-1.3); POTASSIUM 3.6 mmol/L (3.5-5.1)
[2021-03-12 09:02] LABS: HEMATOCRIT 19.8 % (39.0-53.0); HEMOGLOBIN 6.2 g/dL (13.0-17.5)
[2021-03-12] MEDS ORDERED: diphenhydrAMINE ORAL ELIXIR 12.5 MG/5 ML ML PO PRN (09:15)
[2021-03-12] MEDS ORDERED: ACETAMINOPHEN 325 MG TABLET PO PRN (09:15)
--- NOTE | 2021-03-12 10:19 | EKG ---
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
[2021-03-12 11:29] VITALS: BP 134/78
[2021-03-12 11:44] VITALS: BP 135/69
[2021-03-12 12:44] VITALS: BP 148/76
[2021-03-12 13:17] LABS: FECAL OB PT NEGATIVE (NEG)
[2021-03-12 13:37] VITALS: BP 131/70
[2021-03-12 14:22] LABS: OVALOCYTES PRESENT; POLYCHROMASIA PRESENT; TARGET CELLS PRESENT
[2021-03-12 14:23] LABS: ANISOCYTOSIS SLIGHT; HYPOCHROMIA PRESENT; MICROCYTOSIS SLIGHT; PLT ESTIMATE ADEQUATE (ADEQUATE)
[2021-03-12 15:06] LABS: HEMATOCRIT 26.2 % (39.0-53.0); HEMOGLOBIN 8.1 g/dL (13.0-17.5); RED BLOOD COUNT 3.8 x10^6/uL (4.30-5.70); RED CELL DISTRIBUTION WIDTH 23.5 % (11.5-14.5); WHITE BLOOD COUNT 5.9 x10^3/uL (4.0-11.0)
--- NOTE | 2021-03-12 15:17 | EKG ---
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
[2021-03-12 15:33] VITALS: BP 155/68
== END 2021-03-12 15:43 | disposition home or self-care (01) ==
LOC: ER 06:58
DX: D64.9 Anemia, unspecified (principal); R07.2 Precordial pain; M19.90 Unspecified osteoarthritis, unspecified site; J45.909 Unspecified asthma, uncomplicated; F10.20 Alcohol dependence, uncomplicated; Z86.2 Personal history of diseases of the blood and blood-forming organs and certain disorders involving the immune mechanism; Z88.6 Allergy status to analgesic agent; Y90.9 Presence of alcohol in blood, level not specified
CPT/HCPCS: 36415; 36430; 71045; 80048; 82274; 83880; 84484; 85025; 85027; 86850; 86900; 86901; 86920; 93005; 99285; P9016

== ENCOUNTER 2021-03-17 10:34 | Emergency (ER) | payer MEDICARE, OTHER ==
[~2021-03-17] VITALS: Ht 188 cm; Wt 91.6 kg
--- NOTE | 2021-03-17 11:03 | PHYS DOC ---
Past History Past Medical History: Anemia, Arthritis, Asthma Additional Past Medical Histor: Hayfever Past Surgical History: No Surgical History Alcohol Use: Heavy Drug Use: None General Adult EDM: Chief Complaint: CHEST PAIN HPI: HPI: 75-year-old male presents with chest pain. He tells me that it started around 430 this morning. It woke him up from his sleep. It was a lower chest/epigastric area pain that he describes as a pressure. It was moderate in intensity. It is now mild to moderate. Patient denies shortness of breath or diaphoresis. He was seen in this emergency room 5 days ago with a low hemoglobin and received a transfusion. He wonders if this is the same thing. He has had these attacks in the past. No stated cardiac or lung history. He denies any abdominal surgeries. No history of pancreatitis. He denies fever or chills. Review of Systems: Review of Systems: Constitutional: Denies fever or chills Eyes: Denies change in visual acuity HENT: Denies nasal congestion or sore throat Respiratory: Denies cough or shortness of breath Cardiovascular: Denies chest pain or edema GI: Denies abdominal pain, nausea, vomiting, bloody stools or diarrhea : Denies dysuria Musculoskeletal: Denies back pain or joint pain Integument: Denies rash Neurologic: Denies headache, focal weakness or sensory changes Endocrine: Denies polyuria or polydipsia Lymphatic: Denies swollen glands Psychiatric: Denies depression or anxiety Allergies: Allergies: Allergies Coded Allergies Type Severity Reaction Last Updated Verified ibuprofen Allergy Intermediate Hives 01/10/17 Yes Physical Exam: PE: Constitutional: Well developed, well nourished, no acute distress, non-toxic appearance. [] HENT: Normocephalic, atraumatic, bilateral external ears normal, oropharynx moist, no oral exudates, nose normal. [] Eyes: PERRLA, EOMI, conjunctiva normal, no discharge. [] Neck: Normal range of motion, no tenderness, supple, no stridor. [] Cardiovascular: Heart rate 101, regular rhythm, no murmur [] Lungs & Thorax: Bilateral breath sounds clear to auscultation [] Abdomen: Bowel sounds normal, soft, no tenderness, no masses, no pulsatile shivani s. [] Skin: Warm, dry, no erythema, no rash. [] Back: No tenderness, no CVA tenderness. [] Extremities: No tenderness, no cyanosis, no clubbing, ROM intact, no edema. [] Neurologic: Alert and oriented X 3, normal motor function, normal sensory function, no focal deficits noted. [] Psychologic: Affect talkative, judgement normal, mood normal. [] Current Patient Data: Vital Signs: Vital Signs Date Time Temp Pulse Resp B/P (MAP) Pulse Ox O2 Delivery O2 Flow Rate FiO2 03/17/21 10:34 98.8 107 24 145/59 (87) 100 EKG: EKG: Sinus rhythm, rate 101, leftward axis, no ST elevation or depression. [] Radiology/Procedures: Radiology/Procedures: [] Heart Score: C/O Chest Pain: Yes HEART Score for Chest Pain: HEART Score for Chest Pain Response (Comments) Value History Slighlty/Non-Suspicious 0 ECG Nonspecific Repolarizatio 1 Age > 65 2 Risk Factors 1 or 2 Risk Factors 1 Troponin >3 x Normal Limit 2 Total 6 Risk Factors: Risk Factors: DM, Current or recent (<one month) smoker, HTN, HLP, family history of CAD, obesity. Risk Scores: Score 0 - 3: 2.5% MACE over next 6 weeks - Discharge Home Score 4 - 6: 20.3% MACE over next 6 weeks - Admit for Clinical Observation Score 7 - 10: 72.7% MACE over next 6 weeks - Early Invasive Strategies Course & Med Decision Making: Course & Med Decision Making Pertinent Labs and Imaging studies reviewed. (See chart for details) The patient's labs are significant for a hemoglobin of 7.8. His EKG shows sinus tach and a left axis. The patient's troponin is significantly elevated at 1 1.5. Patient appears to be having an NSTEMI. We will repeat an EKG. I spoke with the ccna, Dr. Rosas and he has agreed with aspirin therapy and placing the patient on heparin drip. Patient will be transferred to [facility]. The patient will go by ambulance. He has been accepted by the hospitalist, Dr. Shin. The patient has been held in our emergency room as beds are not available at [facility]. His repeat troponin was similar at 11.3. Second EKG did not show ST elevation. At the end of my shift the patient has not been transferred but is expected to go the next several hours. He has been in stable condition. [] Dragon Disclaimer: Dragon Disclaimer: This electronic medical record was generated, in whole or in part, using a voice recognition dictation system. Departure Departure: Impression: Primary Impression: NSTEMI (non-ST elevated myocardial infarction) Additional Impression: Anemia Qualified Codes: D64.9 - Anemia, unspecified Disposition: 02 SHORT TERM HOSPITAL Condition: GUARDED Referrals: DINA LANGE (PCP) IRMA QUINTANA DO Mar 17, 2021 11:03
[2021-03-17 11:04] LABS: BASO # 0.1 x10^3/uL (0.0-0.2); BASO % 1 % (0-3); EOS # 0.7 x10^3/uL (0.0-0.7); EOS % 7 % (0-3); HEMATOCRIT 25.2 % (39.0-53.0); HEMOGLOBIN 7.8 g/dL (13.0-17.5); LYMPH # 2.2 x10^3/uL (1.0-4.8); LYMPH % 25 % (24-48); MEAN CORPUSCULAR HEMOGLOBIN 21 pg (25-35); MEAN CORPUSCULAR HGB CONC 31 g/dL (31-37); MEAN CORPUSCULAR VOLUME 67 fL (79-100); MONO # 1.5 x10^3/uL (0.0-1.1); MONO % 17 % (0-9); NEUT # 4.5 x10^3uL (1.8-7.7); NEUT % 50 % (31-73); PLATELET COUNT 389 x10^3/uL (140-400); RED BLOOD COUNT 3.77 x10^6/uL (4.30-5.70)
--- NOTE | 2021-03-17 11:06 | RAD ---
Exam Date: 03/17/2021 10:48 AM XR CHEST 1V Indication: Reason: CP / Spl. Instructions: / History: . Comparison: March 12, 2021 FINDINGS/ IMPRESSION: The cardiac silhouette and pulmonary vasculature are within normal limits. There is no focal consolidation, pleural effusion or pneumothorax. The visualized osseous structures are intact. Electronically signed by: Adeel Fernandez MD (03/17/2021 11:04 AM) [facility]
[2021-03-17 11:18] LABS: CALCIUM 8.4 mg/dL (8.5-10.1); GFR 72.6; POTASSIUM 3.4 mmol/L (3.5-5.1)
--- NOTE | 2021-03-17 11:20 | EKG ---
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
[2021-03-17 11:25] LABS: ALBUMIN 3.3 g/dL (3.4-5.0); TOTAL BILIRUBIN 0.3 mg/dL (0.2-1.0); TOTAL PROTEIN 6.7 g/dL (6.4-8.2)
[2021-03-17 11:32] LABS: PLT ESTIMATE ADEQUATE (ADEQUATE)
[2021-03-17 11:34] LABS: ANISOCYTOSIS MOD; HYPOCHROMIA MOD; MICROCYTOSIS MOD; OVALOCYTES OCC; TARGET CELLS OCC; TEAR DROP CELLS OCC
[2021-03-17] MEDS ORDERED: ASPIRIN CHEWABLE 81 MG TABLET. PO ONE (11:45)
[2021-03-17] MEDS ORDERED: HEPARIN 25,000UTS/250ML PREMIX 250 ML IV PRN ×2 (11:45→12:00)
[2021-03-17] MEDS ORDERED: HEPARIN for IV BOLUS 10,000 UNIT/10 ML VIAL. IV PRN (12:00)
[2021-03-17] MEDS ORDERED: HEPARIN for IV BOLUS 10,000 UNIT/10 ML VIAL. IV ONE (12:00)
--- NOTE | 2021-03-17 15:36 | EKG ---
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
[2021-03-17] MEDS ORDERED: IOHEXOL 300 MG/ML 75 ML VIAL. IV ONE (21:00)
[2021-03-17] MEDS ORDERED: CONTRAST GIVEN. MC PRN (21:15)
--- NOTE | 2021-03-17 22:24 | RAD ---
Exam: CT of chest, abdomen and pelvis INDICATION: Abdominal pain TECHNIQUE: Sequential axial images through the chest, abdomen and pelvis obtained following the admin istration of 75 mL of Omni 300 IV contrast. Sagittal and coronal reformatted images were reconstructe d from the axial data and reviewed. Exposure: One or more of the following in the visualized dose reduction techniques were utilized for this examination: 1. Automated exposure control 2. Adjustment of the MA and/or KV according to patient size 3. Use of iterative of reconstructive technique Comparisons: 02/19/2021 FINDINGS: Visualized portions of the thyroid are unremarkable. No enlarged mediastinal lymph nodes are identifi ed. Heart size is normal. No pericardial effusion. Thoracic aorta has a normal course and caliber. Pulmon isa artery is not enlarged. Airways are patent. No consolidation or pneumothorax. No suspicious lung nodules. No pleural effusion or thickening. Liver, spleen, pancreas, gallbladder and adrenals are unremarkable. No perinephric inflammation or hydronephrosis. No renal or ureteral calculi are identified. Bladder is partially distended and appears thin-walled. Prostate is not enlarged. Large and small bowel are unremarkable. Appendix normal. No free intra-abdominal air or fluid. No obs truction. Abdominal aorta has normal course and caliber. Abdominal vasculature is patent. No enlarged intra-abdominal lymph nodes are identified. Mild compression fracture of the superior endplate of T12 with less than 25% height loss. IMPRESSION: 1. Bladder is distended. Correlate with urinalysis for bladder outlet obstruction. 2. Mild compression fracture of the superior endplate T12 with approximately 25% height loss. Electronically signed by: Aniket Snell MD (03/17/2021 10:22 PM) [facility]
[2021-03-17 23:01] VITALS: BP 138/74
[2021-03-17 23:19] VITALS: BP 154/80
[2021-03-17 23:58] VITALS: BP 137/79
[2021-03-18 00:09] VITALS: BP 137/79
== END 2021-03-18 00:19 | disposition short-term general hospital (02) ==
LOC: ER 10:34
DX: I21.4 Non-ST elevation (NSTEMI) myocardial infarction (principal); D64.9 Anemia, unspecified; M19.90 Unspecified osteoarthritis, unspecified site; J45.909 Unspecified asthma, uncomplicated; F10.20 Alcohol dependence, uncomplicated; Z20.822 Contact with and (suspected) exposure to COVID-19; Z88.6 Allergy status to analgesic agent; Y90.9 Presence of alcohol in blood, level not specified
CPT/HCPCS: 36415; 36430; 71045; 71260; 74177; 80053; 83735; 84484; 85025; 85610; 85730; 86850; 86900; 86901; 86920; 87426; 93005; 96365; 96366; 96376; 99285; G0480; J1644; P9016; Q9967; U0003

== ENCOUNTER 2021-03-27 02:03 | Inpatient (IN) | payer MEDICARE, OTHER ==
[~2021-03-27] VITALS: Ht 188 cm; Wt 88.7 kg
--- NOTE | 2021-03-27 02:29 | PHYS DOC ---
Past History Past Medical History: Anemia, Arthritis, Asthma Additional Past Medical Histor: Hayfever Past Surgical History: No Surgical History Alcohol Use: Heavy Drug Use: None General Adult EDM: Chief Complaint: CHEST PAIN HPI: HPI: 75-year-old male presents emergency room with chest pain. The patient has had 3 episodes today which he said central chest tightness, shortness of breath, decreased exercise tolerance. These episodes last about 30 minutes each. He had the same kinds of symptoms just before his heart attack. He was seen in this emergency room by myself about 10 days ago and had an NSTEMI at that time. He had a couple of stents placed. He also started him on multiple medications which she has been taking. He denies fever or chills. He still has lower extremity edema worse on the right than the left. It is improved from his previous ED visit but he states the right leg has been larger in the last 2 days. Review of Systems: Review of Systems: Constitutional: Denies fever or chills Eyes: Denies change in visual acuity HENT: Denies nasal congestion or sore throat Respiratory: shortness of breath Cardiovascular: Chest pain GI: Denies abdominal pain, nausea, vomiting, bloody stools or diarrhea : Denies dysuria Musculoskeletal: Denies back pain or joint pain Integument: Denies rash Neurologic: Denies headache, focal weakness or sensory changes Endocrine: Denies polyuria or polydipsia Lymphatic: Denies swollen glands Psychiatric: Denies depression or anxiety Allergies: Allergies: Allergies Coded Allergies Type Severity Reaction Last Updated Verified ibuprofen Allergy Intermediate Hives 03/18/21 Yes Physical Exam: PE: Constitutional: Well developed, well nourished, no acute distress, non-toxic appearance. [] HENT: Normocephalic, atraumatic, bilateral external ears normal, oropharynx moist, no oral exudates, nose normal. [] Eyes: PERRLA, EOMI, conjunctiva normal, no discharge. [] Neck: Normal range of motion, no tenderness, supple, no stridor. [] Cardiovascular: Heart rate 81, regular rhythm, no murmur [] Lungs & Thorax: Bilateral breath sounds clear to auscultation [] Abdomen: Bowel sounds normal, soft, no tenderness, no masses, no pulsatile masses. [] Skin: Warm, dry, no erythema, no rash. [] Back: No tenderness, no CVA tenderness. [] Extremities: No tenderness, no cyanosis, no clubbing, ROM intact, 4+ pitting edema of the bilateral lower legs to the knees. [] Neurologic: Alert and oriented X 3, normal motor function, normal sensory function, no focal deficits noted. [] Psychologic: Affect normal, judgement normal, mood normal. [] EKG: EKG: Sinus rhythm, rate 81, leftward axis, no ST elevation or depression. [] Radiology/Procedures: Radiology/Procedures: [] Heart Score: C/O Chest Pain: Yes HEART Score for Chest Pain: HEART Score for Chest Pain Response (Comments) Value History Moderately Suspicious 1 ECG Nonspecific Repolarizatio 1 Age > 65 2 Risk Factors >3 Risk Factors or Hx CAD 2 Total 6 Risk Factors: Risk Factors: DM, Current or recent (<one month) smoker, HTN, HLP, family history of CAD, obesity. Risk Scores: Score 0 - 3: 2.5% MACE over next 6 weeks - Discharge Home Score 4 - 6: 20.3% MACE over next 6 weeks - Admit for Clinical Observation Score 7 - 10: 72.7% MACE over next 6 weeks - Early Invasive Strategies Course & Med Decision Making: Course & Med Decision Making Pertinent Labs and Imaging studies reviewed. (See chart for details) The patient's EKG is negative for STEMI. The patient has an elevated troponin of 0.283. This is significantly better than the troponin of 12 that he had 10 days ago. We will keep the patient in the hospital and trend his troponins. The patient's labs are significant for several abnormalities including anemia, but they are similar to previous in the chart. See labs for more details. I spoken with Dr. Nelson and he has accepted the patient for admission. [] Dragon Disclaimer: Dragon Disclaimer: This electronic medical record was generated, in whole or in part, using a voice recognition dictation system. Departure Departure: Impression: Primary Impression: Chest pain Qualified Codes: R07.2 - Precordial pain Disposition: ADMITTED INPATIENT Admitting Physician: Prince Nelson Condition: STABLE Referrals: DINA LANGE (PCP) IRMA QUINTANA DO Mar 27, 2021 02:29
[2021-03-27 02:35] LABS: BASO # 0.1 x10^3/uL (0.0-0.2); BASO % 1 % (0-3); EOS # 0.9 x10^3/uL (0.0-0.7); EOS % 11 % (0-3); HEMATOCRIT 27.6 % (39.0-53.0); HEMOGLOBIN 8.7 g/dL (13.0-17.5); LYMPH # 1.7 x10^3/uL (1.0-4.8); LYMPH % 21 % (24-48); MEAN CORPUSCULAR HEMOGLOBIN 23 pg (25-35); MEAN CORPUSCULAR HGB CONC 32 g/dL (31-37); MEAN CORPUSCULAR VOLUME 71 fL (79-100); MONO # 1.1 x10^3/uL (0.0-1.1); MONO % 14 % (0-9); NEUT # 4.3 x10^3uL (1.8-7.7); NEUT % 53 % (31-73); PLATELET COUNT 352 x10^3/uL (140-400); RED BLOOD COUNT 3.88 x10^6/uL (4.30-5.70); RED CELL DISTRIBUTION WIDTH 27.4 % (11.5-14.5); WHITE BLOOD COUNT 8.1 x10^3/uL (4.0-11.0)
[2021-03-27 02:47] LABS: CALCIUM 8.3 mg/dL (8.5-10.1); GFR 72.6; POTASSIUM 3.9 mmol/L (3.5-5.1)
--- NOTE | 2021-03-27 02:50 | EKG ---
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
[2021-03-27 02:59] LABS: ANISOCYTOSIS MOD; HYPOCHROMIA MOD; MICROCYTOSIS SLIGHT; PLT ESTIMATE ADEQUATE (ADEQUATE)
[2021-03-27 03:00] LABS: ALBUMIN 3.1 g/dL (3.4-5.0); ALBUMIN/GLOBULIN RATIO 0.9 (1.0-1.7); TOTAL BILIRUBIN 0.3 mg/dL (0.2-1.0); TOTAL PROTEIN 6.5 g/dL (6.4-8.2)
[2021-03-27] MEDS ORDERED: ASPIRIN CHEWABLE 81 MG TABLET. PO ONE (03:00)
--- NOTE | 2021-03-27 03:09 | RAD ---
EXAMINATION: Chest radiograph. VIEWS: AP view of the chest COMPARISON: Chest 03/17/2021 INDICATION:75 years, Male, chest pain. FINDINGS: Normal cardiomediastinal silhouette. No focal consolidation. No pleural effusion or pneumothorax. No acute osseous process. IMPRESSION: No acute cardiopulmonary process. Electronically signed by: Luis Franco DO (03/27/2021 3:07 AM) [facility]
[2021-03-27] MEDS ORDERED: ONDANSETRON PF 4 MG/2 ML VIAL. IVP PRN (03:45)
[2021-03-27] MEDS ORDERED: NITROGLYCERIN SUBLINGUAL 0.4 MG BOTTLE OF 25. SL PRN (03:45)
--- NOTE | 2021-03-27 09:07 | EKG ---
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
--- NOTE | 2021-03-27 09:45 | PDOC2 ---
CARDIAC CONSULT DATE OF CONSULT DOS: DATE: 03/27/21 TIME: 09:43 REASON FOR CONSULT Reason for Consult Chest pain REFERRING PHYSICIAN Referring Physician Dr. Nelson SOURCE Source: Chart review, Patient HPI History of Present Illness This is a 75 yo male who presented secondary to chest pain. Patient has a history of CAD and underwent PCI/stent to the LAD 03/19/21. Tolerated procedure well and was discharged home. Patient reports 3 episode of central chest pain since discharge. Two occurred last and were more intense. Describes as pressure in his central chest down his abdomen. No associated dizziness, diaphoresis, or nausea/vomiting. Reports pain to be very similar to what prompted him to the ED last week. Reports compliance with meds including DAPT with ASA/Plavix PAST MEDICAL HISTORY Cardiovascular: CAD Heme/Onc: Anemia NOS PAST SURGICAL HISTORY Past Surgical History: Other (PCI/stent ) FAMILY HISTORY Family History: Hypertension SOCIAL HISTORY Smoke: Quit ALCOHOL: none Drugs: None CURRENT MEDICATIONS Current Medications Current Medications Aspirin (Aspirin Chewable) 324 mg 1X ONCE PO Last administered on 03/27/21at 02:34; Start 03/27/21 at 03:00; Stop 03/27/21 at 03:01; Status DC Ondansetron HCl (Zofran) 4 mg PRN Q4HRS PRN IVP NAUSEA/VOMITING; Start 03/27/21 at 03:45; Stop 03/28/21 at 03:44 Nitroglycerin (Nitrostat) 0.4 mg PRN Q5MIN PRN SL CHEST PAIN; Start 03/27/21 at 03:45; Stop 03/28/21 at 03:44 Active Scripts Active ALLERGIES Allergies: Coded Allergies: ibuprofen (Verified Allergy, Intermediate, Hives, 03/18/21) ROS Review of Systems 14 point ROS conducted with pertinent positives noted above in HPI PHYSICAL EXAM General: Alert, Oriented X3, Cooperative, No acute distress HEENT: Mucous membr. moist/pink Lungs: Clear to auscultation Heart: Regular rate Abdomen: Soft, No tenderness Extremities: Other (1+ bilateral LE edema ) Neuro: Normal speech, Sensation intact Psych/Mental Status: Mental status NL, Mood NL MUSCULOSKELETAL: Osteoarthritic changes both hands VITALS Vital Signs Vital Signs Date Time Temp Pulse Resp B/P (MAP) Pulse Ox O2 Delivery O2 Flow Rate FiO2 03/27/21 09:15 69 20 141/68 (92) 98 03/27/21 05:16 Room Air 03/27/21 02:07 98.2 LABS LABS Laboratory Tests Test 03/27/21 02:13 03/27/21 05:22 03/27/21 08:32 White Blood Count 8.1 x10^3/uL (4.0-11.0) Red Blood Count 3.88 x10^6/uL (4.30-5.70) Hemoglobin 8.7 g/dL (13.0-17.5) Hematocrit 27.6 % (39.0-53.0) Mean Corpuscular Volume 71 fL (79-100) Mean Corpuscular Hemoglobin 23 pg (25-35) Mean Corpuscular Hemoglobin Concent 32 g/dL (31-37) Red Cell Distribution Width 27.4 % (11.5-14.5) Platelet Count 352 x10^3/uL (140-400) Neutrophils (%) (Auto) 53 % (31-73) Lymphocytes (%) (Auto) 21 % (24-48) Monocytes (%) (Auto) 14 % (0-9) Eosinophils (%) (Auto) 11 % (0-3) Basophils (%) (Auto) 1 % (0-3) Neutrophils # (Auto) 4.3 x10^3uL (1.8-7.7) Lymphocytes # (Auto) 1.7 x10^3/uL (1.0-4.8) Monocytes # (Auto) 1.1 x10^3/uL (0.0-1.1) Eosinophils # (Auto) 0.9 x10^3/uL (0.0-0.7) Basophils # (Auto) 0.1 x10^3/uL (0.0-0.2) Platelet Estimate Adequate (ADEQUATE) Hypochromasia Mod Anisocytosis Mod Microcytosis Slight Sodium Level 135 mmol/L (136-145) Potassium Level 3.9 mmol/L (3.5-5.1) Chloride Level 101 mmol/L (98-107) Carbon Dioxide Level 23 mmol/L (21-32) Anion Gap 11 (6-14) Blood Urea Nitrogen 6 mg/dL (8-26) Creatinine 1.0 mg/dL (0.7-1.3) Estimated GFR (Cockcroft-Gault) 72.6 BUN/Creatinine Ratio 6 (6-20) Glucose Level 98 mg/dL (70-99) Calcium Level 8.3 mg/dL (8.5-10.1) Total Bilirubin 0.3 mg/dL (0.2-1.0) Aspartate Amino Transf (AST/SGOT) 32 U/L (15-37) Alanine Aminotransferase (ALT/SGPT) 27 U/L (16-63) Alkaline Phosphatase 97 U/L (46-116) Troponin I Quantitative 0.283 ng/mL (0-0.055) 0.262 ng/mL (0-0.055) 0.278 ng/mL (0-0.055) OV-Oqp-X-Type Natriuretic Peptide 480 pg/mL (0-449) Total Protein 6.5 g/dL (6.4-8.2) Albumin 3.1 g/dL (3.4-5.0) Albumin/Globulin Ratio 0.9 (1.0-1.7) ECHOCARDIOGRAM Echocardiogram <Conclusion> The left ventricular systolic function is normal. The Ejection Fraction is 50-55%. Transmitral Doppler flow pattern is Grade I-abnormal relaxation pattern. Trace mitral regurgitation. Trace tricuspid regurgitation with an estimated PAP of 33 mmHg. There is no evidence of significant pericardial effusion. DATE: 03/19/21 [id number] HEART CATH Heart Cath Conclusion 1. Single-vessel coronary artery disease involving left anterior descending artery that was found to be physiologically significant based on IFR measurement 2. Successful PCI/drug-eluting stent placement to the left anterior descending artery 3. Borderline normal left ventricle systolic function with ejection fraction estimated 50% Recommendations 1. Aspirin 325 mg daily for 1 week followed by 81 mg daily (patient has anemia probably from GI bleeding) 2. Plavix 75 mg daily 3. Cardiovascular risk factor modification DATE: 03/19/21 [id number] ASSESSMENT/PLAN Assessment/Plan 1. Chest pain, mixed features; trop highest 0.278. 2. CAD; cardiac cath 03/19/21 showed single-vessel CAD involving LAD. S/p PCI/ANDRES placement. . Reports compliance with medications 3. Acute on chronic diastolic CHF; Recent Echo showed normal LV systolic funct ion and diastolic dysfunction 4. Hypertension; mildly elevated 5. Anemia, iron deficiency; hgb stable 6. Tobaccoism; recently quit Recommendations Trend troponin Mild diuresis with replacement of potassium Resume secondary prevention measures including DAPT with ASA/Plavix and statin therapy Supportive care Further pending symptomatology post diuresis and troponin trend FÉLIX FRANCIS APRN Mar 27, 2021 09:45
[2021-03-27] MEDS ORDERED: FUROSEMIDE 40 MG/4 ML VIAL IVP ONE (10:15)
[2021-03-27] MEDS ORDERED: POTASSIUM CHLORIDE 20 MEQ TABLET.ER. PO ONE (10:15)
[2021-03-27] MEDS ORDERED: METO25TA4 PO (11:56)
[2021-03-27] MEDS ORDERED: ASPI-630 PO (11:56)
[2021-03-27] MEDS ORDERED: CLOP75TA57 PO (11:56)
[2021-03-27] MEDS ORDERED: FURO-69 PO (11:57)
[2021-03-27] MEDS ORDERED: FERR325T14 PO (11:57)
[2021-03-27] MEDS ORDERED: ATOR40TA59 PO (11:57)
--- NOTE | 2021-03-27 12:58 | NUR ---
The patient, DINO LEON, 75 y/o, M admitted by BRANDY GAMEZ MD, was given written information regarding hospital policies, unit procedures and contact persons. Valuables were checked and recorded. Patient is not complaining of any chest pain at this time. Patient is in bed resting comfortably with side rails up X's 2 with call light in reach. Will notify Dr. Gamez of patients arrival and await orders. TM.
[2021-03-27] MEDS: CLOPIDOGREL BISULFATE 75 MG TABLET PO SCH (13:27)
[2021-03-27] MEDS: METOPROLOL TART IMMED RELEASE 25 MG TABLET. PO SCH ×2 (13:28→21:02)
[2021-03-27] MEDS ORDERED: chlordiazePOXIDE HCL 25 MG CAPSULE PO PRN ×2 (14:30)
--- NOTE | 2021-03-27 14:52 | HP ---
ADMIT DATE: 03/27/2021 HISTORY OF PRESENT ILLNESS: The patient is a 75-year-old male patient who came to the Emergency Room complaining of chest pain. The patient apparently has had 3 episodes today. He has had a central chest tightness associated with shortness of breath, decreased exercise tolerance. These episodes last about 30 minutes each. He had the same kind of symptoms just before his heart attack. He was seen in the [facility] about 10 days ago with a non-ST segment elevation myocardial infarction, apparently had a stent employed in his left anterior descending, was discharged actually on 03/25. He was started at that time on Plavix as well as aspirin as he had a drug-eluting stent. He denied any nausea or vomiting. Denied any diaphoresis, but did complain of shortness of breath. He has also complained of bilateral lower extremity edema, worse on the right than left. He also stated that his right leg has been larger in the last 2 days. He was investigated extensively in the emergency room, has had an EKG showed that he was in sinus rhythm at heart rate of 81 beats per minute, left axis with no ST segment elevation. Has had a chest x-ray which showed normal cardiomediastinal silhouette. No focal consolidation, pleural effusion, or pneumothorax. No acute osseous abnormality. Has had lab work done, which showed his white cell count was normal at 8100, hemoglobin 8.7, hematocrit 27.6, MCV 71 and platelet count of 352,000, with a normal manual differential. Serum sodium was 135, potassium 3.9, chloride 101, bicarbonate 23, anion gap of 11, BUN 6, creatinine 1, estimated GFR was 72 mL per minute. His first set of cardiac enzymes was 0.283. The patient was admitted with chest pain. PAST MEDICAL HISTORY: Significant for coronary artery disease and microcytic hypochromic anemia felt to be due to lower GI bleed. PAST SURGICAL HISTORY: Significant for bilateral cataract extractions. Has bilateral retinal detachment treated with laser treatment. He has also PCI with stent deployment as well as vasectomy. ALLERGIES: HE IS ALLERGIC TO IBUPROFEN. MEDICATIONS: He is currently on the following medication: He is on ferrous sulfate 325 mg twice a day, Plavix 75 mg daily, atorvastatin 40 mg daily, metoprolol tartrate 25 mg twice a day, aspirin 81 mg once a day and furosemide 20 mg daily. FAMILY HISTORY: He has one brother who was younger and in his early 50s because of myocardial infarction. He has one sister who in her early 50s also because of lung cancer. Father in his 70s, but he does not know the cause of his . His mother in her 70s because of myocardial infarction. Her first heart attack was when she was in her 40s. SOCIAL HISTORY: He is , has 2 sons. He gave up smoking pipe last week after his heart attack. He normally smokes pipe continuously. He also drinks about 6 beers a day together with rum and Coke. On the weekends the amount of beer he drinks is higher. He does not use any illicit drugs. 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 He denied any earache, tinnitus or sensory deafness. Denied any nosebleed, stuffy nose or postnasal drip. Denied any sore throat, sore tongue, toothache, hoarseness of voice or difficulty swallowing. Denied any nausea, vomiting, diarrhea or constipation. Denied any hematemesis, melena or hematochezia. Denies dysuria, frequency or hematuria. He did complain obviously of chest pain and shortness of breath on exertion, but denied any orthopnea or paroxysmal nocturnal dyspnea. PHYSICAL EXAMINATION: GENERAL: On arrival to the emergency room, the patient looked pale, but no jaundice, cyanosis or thyromegaly. No jugular venous distention. He has bilateral lower limb edema. VITAL SIGNS: His heart rate was 75, blood pressure is 145/73, his temperature was 98.2, respiratory rate was 18, and oxygen saturation 100% on room air. HEAD, EYES, EARS, NOSE, AND THROAT: Normocephalic, atraumatic. NECK: Supple. HEART: Showed normal first and second heart sounds, no gallop, rub or murmur. CHEST: Shows central trachea, equal bilateral expansion, air entry, vesicular breath sounds. I could not appreciate any crepitation or rhonchi. ABDOMEN: Distended, soft, nontender. NEUROLOGIC: He was awake, alert, responding appropriately. All cranial nerves intact. He moves all extremities without difficulty. EXTREMITIES: Showed no clubbing or cyanosis, but he has bilateral lower extremity edema, more so on the right than left. LABORATORY DATA: His lab work on admission showed a white cell count of 8100, hemoglobin 8.7, hematocrit 27, MCV 71 and platelet count of 352,000 with a manual differential showed 53% polymorphs, 21% lymphocytes, 14% monocytes and 11% eosinophils. His chemistry showed a serum sodium 135, potassium 3.9, chloride 101, bicarbonate 23, anion gap of 11, BUN 6, creatinine 1, estimated GFR was 72 mL per minute. His glucose was 98, calcium was 8.3. Total bilirubin, AST, ALT, alkaline phosphatase were normal. First set of troponin was 0.283. Beta natriuretic peptide was 180. Total protein 6.5, albumin was 3.1. ASSESSMENT AND PLAN: 1. Chest pain with the highest troponin 0.278. 2. The patient apparently had cardiac catheterization on 03/19/2021 showing single vessel coronary artery disease involving left anterior descending, treated with percutaneous coronary intervention and drug-eluting stent placement. An echocardiogram showed the patient has normal left ventricular systolic function with diastolic dysfunction. The patient is known to have hypertension, iron deficiency anemia. He also has been smoking pipe continuously and he has also a history of alcoholism. He drinks 6 beers a day on the weekdays and more than that on the weekend. My plan is to arrange for him to have a venous Doppler ultrasound. We will continue with his current medication. I will arrange for him to have a venous Doppler ultrasound of his right lower extremity. Continue with physical and occupational therapy. He might require more Lasix tomorrow. DOUGLAS/MARBELLA HARPER: Huber TID: [id number]
[2021-03-27 15:03] VITALS: BP 126/70
--- NOTE | 2021-03-27 16:48 | RAD ---
EXAMINATION: US DPLX VENOUS EXTREMITY LOWER RT (LOWER EXTREMITY VENOUS ULTRASOUND) CLINICAL HISTORY: RLE markedly more swollen than LLE TECHNIQUE: Sonographic grayscale images obtained of the right lower extremity deep venous system with color flow Doppler, compression, and augmentation techniques as indicated. Images obtained and stor ed in a permanent archive. COMPARISON: None FINDINGS: No evidence of absent flow or incompressibility within the common femoral vein, femoral vein, or popl iteal vein. Visualized calf veins appear patent on limited evaluation. Subcutaneous edema in the lower leg. IMPRESSION: No evidence of right lower extremity DVT. Electronically signed by: Tc Rivera DO (03/27/2021 4:46 PM) JASPER
[2021-03-27 19:25] VITALS: BP 124/61
[2021-03-27] MEDS ORDERED: ATORVASTATIN CALCIUM 20 MG TABLET PO SCH (21:00)
[2021-03-27] MEDS: FERROUS SULFATE 325 MG TABLET. PO SCH (21:02)
[2021-03-27 23:04] VITALS: BP 136/69
--- NOTE | 2021-03-27 23:10 | NUR ---
PTs home medications noted upon assessment on side table loose in daily container and also an 8-pack of Benadryl in his gown pocket. Medications taken to pharmacy, slip in chart for return on discharge. PT complained of itching. CIWA updated and PT given medication with nightly medications. Lotion applied to bilateral arms and abdomen to help with itching. PT stated he drinks 6 beers per day with more on "game days". He states when he does not drink beer that he drinks bourbon 4-5 ounces. Addendum: 03/27/21 at 2315 by SHANDRA KELLER RN RN PT unable to telephone son. This RN tried to call son on phone number [phone] with no answer. Informed PT. PT will try again tomorrow. Informed PT of visiting policy. Addendum: 03/28/21 at 0030 by SHANDRA KELLER RN RN Scabbing noted to bilateral arms and across lower abdomen. PT noted to be picking at scabs on arm after lotion applied.
--- NOTE | 2021-03-28 00:03 | NUR ---
PT with complaints of "stomach pain" stated he had a prescription for an upcoming dental surgery that he filled, took for the same stomach pain and is requesting same now. PT unsure of exact medication. PT unsure of any home medications. PT offered Zofran but denied.
[2021-03-28 05:57] LABS: HEMATOCRIT 32.1 % (39.0-53.0)
[2021-03-28 06:12] LABS: CALCIUM 8.3 mg/dL (8.5-10.1); GFR 72.6; POTASSIUM 3.7 mmol/L (3.5-5.1)
[2021-03-28 07:38] VITALS: BP 144/73
[2021-03-28] MEDS: FERROUS SULFATE 325 MG TABLET. PO SCH (07:51)
[2021-03-28] MEDS: CLOPIDOGREL BISULFATE 75 MG TABLET PO SCH (07:51)
[2021-03-28 07:53] VITALS: BP 144/73
[2021-03-28] MEDS: METOPROLOL TART IMMED RELEASE 25 MG TABLET. PO SCH (07:53)
--- NOTE | 2021-03-28 08:26 | PDOC ---
CARDIO Progress Notes Date & Time Date of Service DATE: 03/28/21 TIME: 08:23 Time of Evaluation 08:23 Subjective Notes No CP, palpitations. LE slightly better Vitals Vitals Vital Signs Date Time Temp Pulse Resp B/P (MAP) Pulse Ox O2 Delivery O2 Flow Rate FiO2 03/28/21 07:53 67 144/73 03/28/21 07:38 98.1 18 100 Room Air Weight Weight [ ] Input and Output I.O. Intake and Output 03/28/21 07:00 Intake Total 960 ml Balance 960 ml Intake Oral 960 ml # Voids 4 Laboratory Labs Laboratory Tests Test 03/27/21 02:13 03/27/21 05:22 03/27/21 08:32 03/27/21 11:20 White Blood Count 8.1 x10^3/uL (4.0-11.0) Red Blood Count 3.88 x10^6/uL (4.30-5.70) Hemoglobin 8.7 g/dL (13.0-17.5) Hematocrit 27.6 % (39.0-53.0) Mean Corpuscular Volume 71 fL (79-100) Mean Corpuscular Hemoglobin 23 pg (25-35) Mean Corpuscular Hemoglobin Concent 32 g/dL (31-37) Red Cell Distribution Width 27.4 % (11.5-14.5) Platelet Count 352 x10^3/uL (140-400) Neutrophils (%) (Auto) 53 % (31-73) Lymphocytes (%) (Auto) 21 % (24-48) Monocytes (%) (Auto) 14 % (0-9) Eosinophils (%) (Auto) 11 % (0-3) Basophils (%) (Auto) 1 % (0-3) Neutrophils # (Auto) 4.3 x10^3uL (1.8-7.7) Lymphocytes # (Auto) 1.7 x10^3/uL (1.0-4.8) Monocytes # (Auto) 1.1 x10^3/uL (0.0-1.1) Eosinophils # (Auto) 0.9 x10^3/uL (0.0-0.7) Basophils # (Auto) 0.1 x10^3/uL (0.0-0.2) Platelet Estimate Adequate (ADEQUATE) Hypochromasia Mod Anisocytosis Mod Microcytosis Slight Sodium Level 135 mmol/L (136-145) Potassium Level 3.9 mmol/L (3.5-5.1) Chloride Level 101 mmol/L (98-107) Carbon Dioxide Level 23 mmol/L (21-32) Anion Gap 11 (6-14) Blood Urea Nitrogen 6 mg/dL (8-26) Creatinine 1.0 mg/dL (0.7-1.3) Estimated GFR (Cockcroft-Gault) 72.6 BUN/Creatinine Ratio 6 (6-20) Glucose Level 98 mg/dL (70-99) Calcium Level 8.3 mg/dL (8.5-10.1) Total Bilirubin 0.3 mg/dL (0.2-1.0) Aspartate Amino Transf (AST/SGOT) 32 U/L (15-37) Alanine Aminotransferase (ALT/SGPT) 27 U/L (16-63) Alkaline Phosphatase 97 U/L (46-116) Troponin I Quantitative 0.283 ng/mL (0-0.055) 0.262 ng/mL (0-0.055) 0.278 ng/mL (0-0.055) 0.245 ng/mL (0-0.055) OV-Hzf-V-Type Natriuretic Peptide 480 pg/mL (0-449) Total Protein 6.5 g/dL (6.4-8.2) Albumin 3.1 g/dL (3.4-5.0) Albumin/Globulin Ratio 0.9 (1.0-1.7) Test 03/28/21 05:37 Hemoglobin 10.0 g/dL (13.0-17.5) Hematocrit 32.1 % (39.0-53.0) Sodium Level 133 mmol/L (136-145) Potassium Level 3.7 mmol/L (3.5-5.1) Chloride Level 99 mmol/L (98-107) Carbon Dioxide Level 24 mmol/L (21-32) Anion Gap 10 (6-14) Blood Urea Nitrogen 9 mg/dL (8-26) Creatinine 1.0 mg/dL (0.7-1.3) Estimated GFR (Cockcroft-Gault) 72.6 Glucose Level 101 mg/dL (70-99) Calcium Level 8.3 mg/dL (8.5-10.1) Physical Exams HEENT: Neck Supple W Full Motion Chest: Symmetric Lungs: Clear to Auscultation Heart: RRR Abdomen: Soft N/T Extremities: Other (2+ bilateral LE edema ) Neurology: alert, oriented, follow commands Assessment Assessment 1. Chest pain, mixed features; trop highest 0.278. Most probably type II, demand ischemia. now resolved 2. CAD; cardiac cath 03/19/21 showed single-vessel CAD involving LAD. S/p PCI/ANDRES placement. . Reports compliance with medications 3. Acute on chronic diastolic CHF; recent Echo showed normal LV systolic function and diastolic dysfunction 4. Hypertension; now controlled 5. Anemia, iron deficiency; hgb stable 6. Tobaccoism; recently quit Recommendations Repeat trop this am Give additional dose of Lasix therapy 2Gm Na diet and 2000cc FR Secondary prevention measures including DAPT with ASA/Plavix and statin therapy Supportive care Follow up in our office with Dr. Irving scheduled FÉLIX FRANCIS APRN Mar 28, 2021 08:26
[2021-03-28] MEDS ORDERED: ATORVASTATIN CALCIUM 20 MG TABLET PO SCH (09:00)
[2021-03-28] MEDS ORDERED: FUROSEMIDE 20 MG TABLET PO SCH (09:00)
[2021-03-28] MEDS ORDERED: ASPIRIN CHEWABLE 81 MG TABLET. PO SCH (09:00)
[2021-03-28] MEDS ORDERED: POTASSIUM CHLORIDE 20 MEQ TABLET.ER. PO ONE (09:30)
[2021-03-28] MEDS ORDERED: FUROSEMIDE 40 MG/4 ML VIAL IVP ONE (09:30)
--- NOTE | 2021-03-28 10:16 | DS ---
DATE OF DISCHARGE: 03/28/2021 ATTENDING PHYSICIAN: Dr. Nelson. FINAL DISCHARGE DIAGNOSES: 1. Atypical chest pain, resolved. 2. Recent myocardial infarction with a cardiac catheterization and stent 1 vessel LAD, 03/19/2021. 3. Hypertension. 4. Chronic obstructive pulmonary disease. 5. Chronic alcoholism. HISTORY AND PHYSICAL: The patient is a 75-year-old gentleman who had a recent MA. He was catheterized 9 days ago. He had a stent placed and single vessel disease. He is an alcoholic and drinks to excess. He also is a smoker. He was admitted for further treatment and evaluation. PHYSICAL EXAMINATION: Please see the dictated note. PERTINENT LABORATORY AND X-RAY STUDIES: His hemoglobin was 10.0 g/dL, which is chronic for him, white count 8100. Cardiac enzymes were 0.26, 0.27, 0.25, and 0.21. It was trending downwards. However, these are still elevated due to stress demand ischemia. He was seen in consultation by Cardiology services. They are familiar with him with the recent catheterization. They recommended continuing medical management. His symptoms resolved. He did have some pedal edema in his ankles. Ultrasound ruled out blood clots. This is due to excess fluid and beer intake. Lasix dose was increased. By the second hospital day, his vital signs were stable. He was pain free. He wanted to go home. Strong encouragement to avoid further alcohol and tobacco use, whether or not he will remains to be seen. On the day of discharge, his blood pressure was 136/69. He was afebrile and oxygen saturation 100% on room air. His discharge meds include increased Lasix dose to 80 mg p.o. daily, K-Dur 20 mEq p.o. daily, aspirin 81 mg daily, Plavix 75 mg daily, Lipitor 40 mg daily, ferrous sulfate, and metoprolol 25 mg b.i.d. Once again strong encouragement to avoid further alcohol or tobacco use, whether or not he will quit remains to be seen. He will follow up with Cardiology and with his PCP as scheduled. The patient was then discharged from our hospital in stable condition with explicit drug and followup care. POLINA DR: Josephine TID: [id number] CC: SARBJIT HENRY
--- NOTE | 2021-03-28 10:37 | NUR ---
PATIENT IS DISCHARGED HOME, HOME MEDICATION PICKED UP FROM PHARMACY AND GIVEN TO THE PATIENT. DISCHARGE INSTRUCTION REVIEWED, PATIENT VERBALIZED UNDERSTANDING. PATIENT LEFT UNIT VIA AMBULATION ACCOMP BY STAFF. PATIENT TAKEN HOME BY SON VIA PERSONAL VEHICLE.
[2021-04-01] MEDS ORDERED: MULTIVITAMIN with MINERAL TABLET. PO SCH (09:00)
[2021-04-01] MEDS ORDERED: FOLIC ACID 1 MG TABLET PO SCH (09:00)
[2021-04-01] MEDS ORDERED: THIAMINE 100 MG TABLET. PO SCH (09:00)
== END 2021-03-28 10:40 | disposition home or self-care (01) | DRG 392 ==
LOC: ER 02:03 → 1 SOUTH 03:41 → UNDOADMIN 03:41 → 1 SOUTH 10:07
PROVIDERS: ADMIT Internal Medicine; ATTEND Internal Medicine
DX: K21.9 Gastro-esophageal reflux disease without esophagitis (principal); I50.32 Chronic diastolic (congestive) heart failure; I11.0 Hypertensive heart disease with heart failure; D50.9 Iron deficiency anemia, unspecified; F10.20 Alcohol dependence, uncomplicated; F17.290 Nicotine dependence, other tobacco product, uncomplicated; I25.10 Atherosclerotic heart disease of native coronary artery without angina pectoris; I25.2 Old myocardial infarction; J44.9 Chronic obstructive pulmonary disease, unspecified; Z82.49 Family history of ischemic heart disease and other diseases of the circulatory system; Z80.1 Family history of malignant neoplasm of trachea, bronchus and lung; Z95.5 Presence of coronary angioplasty implant and graft; Z98.41 Cataract extraction status, right eye; Z98.42 Cataract extraction status, left eye; Z20.822 Contact with and (suspected) exposure to COVID-19
CPT/HCPCS: 36415; 71045; 80048; 80053; 83880; 84484; 85014; 85018; 85025; 93005; 93971; J1940; U0003; 99285-25

== ENCOUNTER 2021-04-13 07:46 | Emergency (ER) | payer MEDICARE, OTHER ==
[~2021-04-13] VITALS: Ht 188 cm; Wt 88.7 kg
[~2021-04-13 07:46] MED LIST changes: +ASPI-630 PO; +ATOR40TA59 PO; +CLOP75TA57 PO; +FERR325T14 PO; +FURO-69 PO; +METO25TA4 PO
--- NOTE | 2021-04-13 08:03 | EKG ---
[address] [address] Test Date: 2021-04-13 Test Time: 07:50:54 Pat Name: DINO LEON Department: Room: Gender: M Second Mate: JOHANA : 1945 Requested By: IRMA QUINTANA Order Number: [id number] Reading MD: Zeeshan Irving Measurements Intervals [place] Rate: 87 P: 50 ND: 154 QRS: -66 QRSD: 120 T: 59 QT: 398 QTc: 480 Interpretive Statements SINUS RHYTHM ABNORMAL LEFT AXIS DEVIATION LEFT ANTERIOR FASCICULAR BLOCK QRS(T) CONTOUR ABNORMALITY CONSIDER ANTEROSEPTAL MYOCARDIAL DAMAGE ABNORMAL ECG Electronically Signed On 04-19-2021 13:07:51 CDT by Zeeshan Irving
[2021-04-13 08:09] VITALS: BP 126/71
[2021-04-13 08:13] LABS: BASO # 0.2 x10^3/uL (0.0-0.2); BASO % 2 % (0-3); EOS # 1.1 x10^3/uL (0.0-0.7); EOS % 12 % (0-3); HEMOGLOBIN 8.7 g/dL (13.0-17.5); LYMPH # 1.9 x10^3/uL (1.0-4.8); LYMPH % 22 % (24-48); MEAN CORPUSCULAR HEMOGLOBIN 25 pg (25-35); MEAN CORPUSCULAR HGB CONC 32 g/dL (31-37); MEAN CORPUSCULAR VOLUME 77 fL (79-100); MONO % 11 % (0-9); NEUT # 4.7 x10^3uL (1.8-7.7); NEUT % 53 % (31-73); PLATELET COUNT 337 x10^3/uL (140-400); RED BLOOD COUNT 3.51 x10^6/uL (4.30-5.70); RED CELL DISTRIBUTION WIDTH 30.3 % (11.5-14.5); WHITE BLOOD COUNT 8.9 x10^3/uL (4.0-11.0)
--- NOTE | 2021-04-13 08:17 | PHYS DOC ---
Past History Past Medical History: Anemia, Arthritis, Asthma Additional Past Medical Histor: Hayfever Past Surgical History: Other Additional Past Surgical Histo: stent Alcohol Use: Heavy Drug Use: None General Adult EDM: Chief Complaint: CHEST PAIN HPI: HPI: 75-year-old male presents with chest pain. The pain started overnight per the patient. It has been coming and going for a few hours. The patient recently had a stent placed at [facility] within the last 30 days. He describes the pain as a pressure sensation. It is currently a 6 out of 10. The patient has also had increased swelling of the right lower leg. After he left the hospital, the edema improved but has slowly returned. The patient has had some shortness of breath, worse with exertion. He is taking his medications as prescribed. He is currently on an antibiotic, amoxicillin preparing for oral surgery. He denies fever or chills. Review of Systems: Review of Systems: Constitutional: Denies fever or chills Eyes: Denies change in visual acuity HENT: Denies nasal congestion or sore throat Respiratory: shortness of breath Cardiovascular: Chest pain GI: Denies abdominal pain, nausea, vomiting, bloody stools or diarrhea : Denies dysuria Musculoskeletal: Denies back pain or joint pain Integument: Denies rash Neurologic: Denies headache, focal weakness or sensory changes Endocrine: Denies polyuria or polydipsia Lymphatic: Denies swollen glands Psychiatric: Denies depression or anxiety Allergies: Allergies: Allergies Coded Allergies Type Severity Reaction Last Updated Verified ibuprofen Allergy Intermediate Hives 03/18/21 Yes Physical Exam: PE: Constitutional: Well developed, well nourished, no acute distress, non-toxic appearance. [] HENT: Normocephalic, atraumatic, bilateral external ears normal, oropharynx moist, no oral exudates, nose normal. [] Eyes: PERRLA, EOMI, conjunctiva normal, no discharge. [] Neck: Normal range of motion, no tenderness, supple, no stridor. [] Cardiovascular: Heart rate 87, regular rhythm, no murmur [] Lungs & Thorax: Bilateral breath sounds clear to auscultation [] Abdomen: Bowel sounds normal, soft, no tenderness, no masses, no pulsatile masses. [] Skin: Many small, erythematous ulcerations of the skin with pink border. Erythematous, warm skin of the right lower leg. [] Back: No tenderness, no CVA tenderness. [] Extremities: No tenderness, no cyanosis, no clubbing, ROM intact, no edema. [] Neurologic: Alert and oriented X 3, normal motor function, normal sensory function, no focal deficits noted. [] Psychologic: Affect normal, judgement normal, mood normal. [] EKG: EKG: Sinus rhythm, rate 87, left axis, no ST elevation or depression. [] Radiology/Procedures: Radiology/Procedures: [] Heart Score: C/O Chest Pain: Yes HEART Score for Chest Pain: HEART Score for Chest Pain Response (Comments) Value History Moderately Suspicious 1 ECG Nonspecific Repolarizatio 1 Age > 65 2 Risk Factors >3 Risk Factors or Hx CAD 2 Total 6 Risk Factors: Risk Factors: DM, Current or recent (<one month) smoker, HTN, HLP, family history of CAD, obesity. Risk Scores: Score 0 - 3: 2.5% MACE over next 6 weeks - Discharge Home Score 4 - 6: 20.3% MACE over next 6 weeks - Admit for Clinical Observation Score 7 - 10: 72.7% MACE over next 6 weeks - Early Invasive Strategies Course & Med Decision Making: Course & Med Decision Making Pertinent Labs and Imaging studies reviewed. (See chart for details) The patient's EKG is negative for acute findings. His labs are significant for a hemoglobin of 8.7. Review of the chart shows that this is a similar hemoglobin to his previous. His other labs are essentially noncontributory. His troponin is negative. This is much improved from his previous visit. His chest x-ray is negative for acute findings. Strictly by the heart score, the patient needs admission criteria however he just had a cardiac cath and stent placement. The description of his symptoms do not sound consistent with vessel occlusion. He has had the symptoms for several hours and his troponin is negative. The patient is pain-free at this time. The patient's right lower leg appears consistent with cellulitis will treat him with Keflex for 7 days. Otherwise I believe he is able to go home. He is stable for discharge at this time. [] Dragon Disclaimer: Dragon Disclaimer: This electronic medical record was generated, in whole or in part, using a voice recognition dictation system. Departure Departure: Impression: Primary Impression: Chest pain Qualified Codes: R07.9 - Chest pain, unspecified Additional Impressions: Cellulitis of right lower leg Anemia Qualified Codes: D63.8 - Anemia in other chronic diseases classified elsewhere Disposition: 01 HOME / SELF CARE / HOMELESS Condition: STABLE Referrals: DINA LANGE (PCP) Patient Instructions: Cellulitis, [id number], Chest Pain (Nonspecific), [id number] Scripts Cephalexin (KEFLEX) 500 Mg Capsule 1 CAP PO TID for cellulitis for 7 Days, #21 CAP Prov: IRMA QUINTANA DO 04/13/21 IRMA QUINTANA DO Apr 13, 2021 08:17
[2021-04-13 08:27] LABS: CALCIUM 8.6 mg/dL (8.5-10.1); CREATININE 1.3 mg/dL (0.7-1.3); GFR 53.7; POTASSIUM 3.5 mmol/L (3.5-5.1)
[2021-04-13 08:33] LABS: ALBUMIN 3.3 g/dL (3.4-5.0); TOTAL BILIRUBIN 0.2 mg/dL (0.2-1.0); TOTAL PROTEIN 6.7 g/dL (6.4-8.2)
--- NOTE | 2021-04-13 08:42 | RAD ---
EXAM: XR CHEST 1V 04/13/2021 8:25 AM CLINICAL INDICATION: Chest pain COMPARISON: Chest radiograph 03/27/2021 TECHNIQUE: AP upright view of the chest FINDINGS: The heart and mediastinum are normal. Lungs are well-expanded and clear. No consolidatio n, pleural effusion, or pneumothorax. Pulmonary vascularity is normal. No acute osseous abnormality. IMPRESSION: No acute cardiopulmonary abnormality. Electronically signed by: Kim oJshi MD (04/13/2021 8:40 AM) [id number]
[2021-04-13 09:08] LABS: PLT ESTIMATE ADEQUATE (ADEQUATE)
[2021-04-13 09:10] LABS: ANISOCYTOSIS MOD; POLYCHROMASIA SLIGHT; TARGET CELLS MOD
[2021-04-13 09:11] LABS: HYPOCHROMIA SLIGHT
[2021-04-13] MEDS ORDERED: CEPH500C PO (09:40)
[2021-04-13 09:49] LABS: BACTERIA,URINE 0 /HPF (0-FEW); BILIRUBIN,URINE NEG (NEG); CLARITY,URINE CLEAR; COLOR,URINE YELLOW; GLUCOSE,URINE NEG (NEG); HYALINE CASTS, URINE FEW /HPF; NITRITE,URINE NEG (NEG); RBC,URINE 0 /HPF (0-2); SQUAMOUS EPITHELIAL CELL,UR OCC /LPF; UROBILINOGEN,URINE 0.2 mg/dL (0.2 mg/dL); WBC,URINE RARE /HPF (0-4)
== END 2021-04-13 09:30 | disposition home or self-care (01) ==
LOC: ER 07:46
DX: D64.9 Anemia, unspecified (principal); R07.89 Other chest pain; L03.115 Cellulitis of right lower limb; J45.909 Unspecified asthma, uncomplicated; Z88.6 Allergy status to analgesic agent
CPT/HCPCS: 36415; 71045; 80053; 81001; 83690; 83880; 84484; 85025; 93005; 99285-25

== ENCOUNTER 2021-04-30 07:44 | Emergency (ER) | payer MEDICARE, OTHER ==
[~2021-04-30] VITALS: Ht 188 cm; Wt 89.0 kg
[~2021-04-30 07:44] MED LIST changes: +CEPH500C PO
[2021-04-30] MEDS ORDERED: ASPIRIN CHEWABLE 81 MG TABLET. PO ONE (08:15)
--- NOTE | 2021-04-30 08:38 | PHYS DOC ---
Past History Past Medical History: Anemia, Arthritis, Asthma Additional Past Medical Histor: Hayfever Past Surgical History: Other Additional Past Surgical Histo: stent Alcohol Use: Heavy Additional Alcohol Information: beer Drug Use: None General Adult EDM: Chief Complaint: CHEST PAIN HPI: HPI: Patient is a 76-year-old male coming in for chest pain that woke him from sleep 1.5 hours prior to arrival. Says it is his left chest and is pressure-like. Does not radiate. Has a history significant for a heart attack with 1 stent placed about 1.5 months ago. Patient states she was also treated for anemia at that time. He states that he has had black tarry stools for the past couple of weeks. Is taking aspirin and Plavix at home. Patient states she has a history of lower extremity edema that had gotten better but he started taking his diuretics but has recently started getting worse again. Review of Systems: Review of Systems: All other systems within normal limits except for as noted in the HPI Current Medications: Current Meds: Current Medications Medications (Trade) Dose Ordered Sig/Soledad Start Time Stop Time Status Last Admin Dose Admin Aspirin (Aspirin Chewable) 324 mg 1X ONCE 04/30/21 08:15 04/30/21 08:25 DC Allergies: Allergies: Allergies Coded Allergies Type Severity Reaction Last Updated Verified ibuprofen Allergy Intermediate Hives 03/18/21 Yes Physical Exam: PE: Constitutional: Well developed, well nourished, no acute distress, non-toxic appearance. [] HENT: Normocephalic, atraumatic, bilateral external ears normal, nose normal. [] Eyes: PERRLA, conjunctiva normal, no discharge. [] Neck: No rigidity, supple, no stridor. [] Cardiovascular: Regular rate and rhythm, brisk cap refill [] Lungs & Thorax: Non labored symmetric respirations, no tachypnea or respiratory distress [] Abdomen: Soft, nondistended. Skin: Warm, dry, no erythema, no rash. [] Back: Unremarkable Extremities: No deformities, range of motion grossly intact, bilateral pitting lower extremity edema [] Neurologic: Alert and oriented X 3, no focal deficits noted. [] Psychologic: Affect normal, judgement normal, mood normal. [] Current Patient Data: Vital Signs: Vital Signs Date Time Temp Pulse Resp B/P (MAP) Pulse Ox O2 Delivery O2 Flow Rate FiO2 10/18/21 07:50 98.2 92 20 126/71 (89) 99 EKG: EKG: Sinus rhythm, heart rate 84 bpm, left axis deviation, no ST elevation or depression precordial ectopy. [] Radiology/Procedures: Radiology/Procedures: [address] [id number] IMAGING REPORT Signed PATIENT: DINO LEON ACCOUNT: [id number] : 1945 LOCATION: ER AGE: 76 SEX: M EXAM STATUS: REG ER ORD. PHYSICIAN: LISA WRIGHT MD REASON: CHEST PAIN PROCEDURE: CHEST AP ONLY EXAM: CHEST 1 VIEW History: Chest pain COMPARISON: 04/13/2021 TECHNIQUE: Single portable radiograph of the chest FINDINGS: The cardiac silhouette is unremarkable. The lungs are clear bilaterally. The costophrenic sulci are clear and well demarcated. IMPRESSION: No radiographic evidence of an acute cardiopulmonary process. Electronically signed by: José Manuel Omalley MD (04/30/2021 8:55 AM) [id number] DICTATED AND SIGNED BY: JOSÉ MANUEL OMALLEY MD DATE: 04/30/21850 CC: LISA WRIGHT MD; DINA LANGE ~MTH0 0 [] Heart Score: C/O Chest Pain: Yes HEART Score for Chest Pain: HEART Score for Chest Pain Response (Comments) Value History Moderately Suspicious 1 ECG Nonspecific Repolarizatio 1 Age > 65 2 Risk Factors >3 Risk Factors or Hx CAD 2 Troponin < Normal Limit 0 Total 6 Risk Factors: Risk Factors: DM, Current or recent (<one month) smoker, HTN, HLP, family history of CAD, obesity. Risk Scores: Score 0 - 3: 2.5% MACE over next 6 weeks - Discharge Home Score 4 - 6: 20.3% MACE over next 6 weeks - Admit for Clinical Observation Score 7 - 10: 72.7% MACE over next 6 weeks - Early Invasive Strategies Course & Med Decision Making: Course & Med Decision Making Chest pain resolved and return to emergency department visit. Repeat troponin negative. Patient has been seen since his cath for similar presentation with negative work-up in the emergency department. Dragon Disclaimer: Uriel Disclaimer: This electronic medical record was generated, in whole or in part, using a voice recognition dictation system. Departure Departure: Impression: Primary Impression: Chest pain Disposition: HOME / SELF CARE / HOMELESS Condition: STABLE Referrals: DINA LANGE (PCP) Patient Instructions: Chest Pain (Nonspecific) LISA WRIGHT MD Apr 30, 2021 08:38
[2021-04-30 08:45] LABS: BASO # 0.1 x10^3/uL (0.0-0.2); BASO % 1 % (0-3); EOS % 14 % (0-3); HEMATOCRIT 24.4 % (39.0-53.0); LYMPH # 1.6 x10^3/uL (1.0-4.8); LYMPH % 22 % (24-48); MEAN CORPUSCULAR HEMOGLOBIN 27 pg (25-35); MEAN CORPUSCULAR HGB CONC 33 g/dL (31-37); MEAN CORPUSCULAR VOLUME 84 fL (79-100); MONO # 0.8 x10^3/uL (0.0-1.1); MONO % 11 % (0-9); NEUT # 3.8 x10^3uL (1.8-7.7); NEUT % 53 % (31-73); PLATELET COUNT 268 x10^3/uL (140-400); RED BLOOD COUNT 2.92 x10^6/uL (4.30-5.70); RED CELL DISTRIBUTION WIDTH 30.1 % (11.5-14.5); WHITE BLOOD COUNT 7.2 x10^3/uL (4.0-11.0)
[2021-04-30 08:52] LABS: CALCIUM 8.3 mg/dL (8.5-10.1); CREATININE 1.4 mg/dL (0.7-1.3); GFR 49.1; POTASSIUM 3.7 mmol/L (3.5-5.1)
--- NOTE | 2021-04-30 08:57 | RAD ---
EXAM: CHEST 1 VIEW History: Chest pain COMPARISON: 04/13/2021 TECHNIQUE: Single portable radiograph of the chest FINDINGS: The cardiac silhouette is unremarkable. The lungs are clear bilaterally. The costophrenic sulci are clear and well demarcated. IMPRESSION: No radiographic evidence of an acute cardiopulmonary process. Electronically signed by: José Manuel Omalley MD (04/30/2021 8:55 AM) [id number]
[2021-04-30 09:05] LABS: ALBUMIN 3.3 g/dL (3.4-5.0); ALBUMIN/GLOBULIN RATIO 1.1 (1.0-1.7); MAGNESIUM 2.3 mg/dL (1.8-2.4); PHOSPHORUS 4.4 mg/dL (2.6-4.7); TOTAL BILIRUBIN 0.3 mg/dL (0.2-1.0); TOTAL PROTEIN 6.4 g/dL (6.4-8.2)
[2021-04-30 09:07] LABS: % BASOS 2 % (0-3); % EOS 14 % (0-5); % LYMPHS 22 % (24-48); % MONOS 6 % (0-10); % SEGS 56 % (35-66)
[2021-04-30 09:08] LABS: ANISOCYTOSIS MOD; TARGET CELLS FEW
[2021-04-30 09:09] LABS: HYPOCHROMIA MOD; PLT ESTIMATE ADEQUATE (ADEQUATE)
[2021-04-30] MEDS ORDERED: diphenhydrAMINE 50 MG/ML VIAL IVP ONE (10:15)
[2021-04-30 12:00] VITALS: BP 143/72
--- NOTE | 2021-04-30 12:25 | EKG ---
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
== END 2021-04-30 12:40 | disposition home or self-care (01) ==
LOC: ER 07:44
DX: R07.89 Other chest pain (principal); M19.90 Unspecified osteoarthritis, unspecified site; J45.909 Unspecified asthma, uncomplicated; F10.20 Alcohol dependence, uncomplicated; Z86.2 Personal history of diseases of the blood and blood-forming organs and certain disorders involving the immune mechanism; Z79.82 Long term (current) use of aspirin; Z88.6 Allergy status to analgesic agent; Y90.9 Presence of alcohol in blood, level not specified
CPT/HCPCS: 36415; 71045; 80053; 83690; 83735; 83880; 84100; 84484; 85007; 85025; 85610; 93005; 96374; 99285; J1200